=== PATIENT | male | born 1945 | race Caucasian/White ===

== ENCOUNTER 2016-10-02 10:31 | Day surgery (SDC) | payer MEDICARE, OTHER ==
--- NOTE | 2016-10-02 06:52 | PCM.HP ---
H&P History of Present Illness - General Date of Service: 10/02/16 Admit Problem/Dx: Left sided abdominal pain Source of Information: Patient History Limitations: Reports: No Limitations - History of Present Illness Initial Comments - Free Text/Narative: The patient is a 71-year-old male initially referred by Dr. Jani Armstrong for colonoscopy. The patient presents today diagnostic colonoscopy. He was last evaluated in the clinic on 08/15. He has been evaluated by cardiology, Dr. Macedo, "Patient can proceed w/ colonoscopy w/ low risk from cardiovascular standpoint." He was approved to proceed with endoscopy. He denies any changes to his mina history since his last visit. However, he does report he has left upper/flank pain and thought he was supposed to have an EGD. He reports he thought Dr. Armstrong recommended this. I reviewed Dr. Armstrong's note and only note colonoscopy was advised and a CT scan was ordered. He reports he continues to have the LUQ and LLQ pain after eating hard cheese. Worse with coughing and sneezing. He doesn' t feel a mass or bulge. ~No pain with lifting. ~NO obstipation. ~No pain reported today. ~~Denies history of ulcerative colitis or Crohn's disease. Denies any family history of inflammatory bowel disease or GI cancers. Son has colon polyps. ~Last colonoscopy was 1993, told it was normal. No history of fever, chills, or night sweats.Pain is resolved by having BM. Reports he feels this pain is improving. Now only occurs weekly. No longer has the right upper back pain, but feels he has a lump on his back, they thought it was a rib that was "out." The patient denies any constipation/ diarrhea/ hematochezia/ melena/blood on tissue paper/hemorrhoids. Has 1~soft, brown, formed, BMs daily. ~Bowel movements are described as regular and easy to pass. No unintentional weight loss. No change in stool caliber. No history of reflux, heartburn, nausea, vomiting, or dysphagia. - Related Data Allergies/Adverse Reactions: Allergies Allergy/AdvReac Type Severity Reaction Status Date / Time seafood Allergy Airway Uncoded 10/01/16 13:39 Tightness Home Medications: Home Meds Levothyroxine [Levothroid] 137 mcg PO DAILY 10/25/14 [History] Albuterol Sulfate [Ventolin Hfa] 1 - 2 puff INH Q4H PRN 10/01/16 [History] Aspirin 81 mg PO DAILY 10/01/16 [History] EPINEPHrine [Epipen] 1 dose IM ONETIME PRN 10/01/16 [History] Finasteride [Finasteride] 5 mg PO DAILY 10/01/16 [History] Flaxseed Oil 1,000 mg PO DAILY 10/01/16 [History] Metoprolol Succinate [Toprol XL] 25 mg PO DAILY 10/01/16 [History] Multivitamin [Multivitamins] 1 tab PO DAILY 10/01/16 [History] Nitroglycerin [Nitrostat] 0.4 mg SL Q5M PRN 10/01/16 [History] Ramipril [Ramipril] 10 mg PO DAILY 10/01/16 [History] Tamsulosin [Flomax] 0.4 mg PO DAILY 10/01/16 [History] Tiotropium Br/Olodaterol HCl [Stiolto Respimat Inhal [place]] 2 puff INH BID 10/01 [History] atorvaSTATin [Lipitor] 40 mg PO DAILY 10/01/16 [History] Past Medical History HEENT History: Reports: Impaired Vision, Other (See Below) Other HEENT History: impacted cerumen, glasses, dentures Cardiovascular History: Reports: CAD, High Cholesterol, Hypertension, [place], Stents , Other (See Below) Other Cardiovascular History: bradycardia, ASCVD, dysrhythmia, chronic ischemic heart disease, heart cath with stents Respiratory History: Reports: COPD, PE, Sleep Apnea, SOB Other Respiratory History: use of bipap, chronic cough, emphysema Gastrointestinal History: Reports: GERD Genitourinary History: Reports: Other (See Below) Other Genitourinary History: prostate hypertrophy OTOLARYNGOLOGY NURSE History: Reports: None Musculoskeletal History: Reports: Other (See Below) Other Musculoskeletal History: joint pain, broken bones, degenerative joint disease Neurological History: Reports: Concussion, Vertigo Psychiatric History: Reports: None Endocrine/Metabolic History: Reports: Hypothyroidism, Obesity/BMI 30+ Hematologic History: Reports: None Immunologic History: Reports: None Oncologic (Cancer) History: Reports: None Dermatologic History: Reports: Eczema, Other (See Below) Other Dermatologic History: contact dermatitis, rash, seborrheic keratosis - Past Surgical History Other Cardiovascular Surgeries/Procedures: stents GI Surgical History: Reports: Colonoscopy, Hernia, Inguinal Neurological Surgical History: Reports: Other (See Below) Other Neurological Surgeries/Procedures: spine surgery Musculoskeletal Surgical History: Reports: Other (See Below) Other Musculoskeletal Surgeries/Procedures:: 4-5 back surgeries, ankle fracture with repair Social & Family History - Tobacco Use Smoking Status *Q: Former Smoker Years of Tobacco use: 30 Used Tobacco, but Quit: Yes Month Tobacco Last Used: 12/2005 Second Hand Smoke Exposure: No - Caffeine Use Caffeine Use: Reports: None - Alcohol Use Days Per Week of Alcohol Use: 0 - Recreational Drug Use Recreational Drug Use: No Drug Use in Last 12 Months: No H&P Review of Systems - Review of Systems: Review Of Systems: See Below Free Text/Narrative: Denies any exertional chest pain. Has exertional shortness of breath, COPD. ~ Has never used albuterol. No history of any easy bleeding or bruising. Personal hx of PE several years ago. ~Was on Lovenox for a while after this. Also report he recalls taking Plavix at one point~. ~NO familial history of clotting or bleeding disorders. No history of anesthetic complications. No history of familial anesthetic complications. Denies presence of chest pain. He has never used Nitro. ~NO: ~Palpitations. Reports will forget to breath when working on things and will gasp for air. Reports he Will have abnormal heart rates and pauses on pulse oximeter. ~ NO: lower extremity edema, dyspnea at rest, orthopnea, claudication, wheezing. Has obstructive sleep apnea, uses BIPAP. ~Has a slight chronic cough. NO: upper respiratory symptoms in the last two weeks. No blood thinner use. No history of anemia. ~No history of seizure or stroke. ~ Prior cardiology and pulmonology evaluation. All other systems reviewed and were negative except as per history of present illness. General: Reports: No Symptoms. Denies: Fever, Chills, Night Sweats, Diaphoresis HEENT: Reports: No Symptoms Pulmonary: Reports: No Symptoms. Denies: Shortness of Breath, Wheezing, Cough Cardiovascular: Reports: No Symptoms. Denies: Chest Pain, Palpitations Gastrointestinal: Reports: Other (see hpi ) Genitourinary: Reports: No Symptoms Musculoskeletal: Reports: No Symptoms Skin: Reports: Other (see hpi ) Psychiatric: Reports: No Symptoms Neurological: Reports: No Symptoms Hematologic/Lymphatic: Reports: No Symptoms Immunologic: Reports: No Symptoms Exam - Exam Exam: See Below - Vital Signs Weight: 127.006 kg - Exam General: Alert, Oriented, Cooperative HEENT: Conjunctiva Clear. No: Scleral Icterus Lungs: Clear to Auscultation, Normal Respiratory Effort Cardiovascular: Regular Rate, Regular Rhythm (occasional extrasystole ), Normal S1, Normal S2. No: Systolic Murmur, Diastolic Murmur Abdomen: Normal Bowel Sounds, Soft, Tenderness (slightly tender LLQ ) Back Exam: Normal Inspection Extremities: Normal Inspection. No: Cyanosis, Cool, Edema, Increased Warmth Skin: Warm, Dry, Intact, Other (soft tissue mass to right upper back ? lipoma, non-tender, no color/temperature change to overlying skin ) Neuro Extensive - Mental Status: Alert, Oriented x3, Normal Mood/Affect, Normal Cognition, Memory Intact Psychiatric: Alert, Normal Affect, Normal Mood *Q Meaningful Use (ADM) - VTE *Q VTE Criteria *Q: - Stroke *Q Stroke Criteria *Q: - AMI *Q AMI Criteria *Q: - Problem List (1) LLQ pain SNOMED Code(s): 494799898 ICD Code: R10.32 - LEFT LOWER QUADRANT PAIN Status: Acute Current Visit: Yes (2) Left upper quadrant pain SNOMED Code(s): 188609687 ICD Code: R10.12 - LEFT UPPER QUADRANT PAIN Status: Acute Current Visit: Yes Problem List Initiated/Reviewed/Updated: Yes Orders Last 24hrs: Active Orders 24 hr Category Date Time Status Peripheral IV Care [RC] . DIRECTED Care 10/02/16 07:00 Active Verify Patient Consent Obtain [RC] ASDIRECTED Care 10/02/16 07:00 Active Lactated Ringers [Ringers, Lactated] 1,000 ml Med 10/02/16 07:00 Active IV ASDIRECTED Lidocaine 1%/Sod Bicarbonate [Buffered Lidocaine 1% in Med 10/02/16 07:00 Active NS 8.4%] 0.25 ml .XX ONETIME PRN Sodium Chloride 0.9% [Saline Flush] Med 10/02/16 07:00 Active 10 ml FLUSH ASDIRECTED PRN Medication Administration Instruction [OM.PC] Routine Oth 10/02/16 07:00 Ordered Peripheral IV Insertion Adult [OM.PC] Routine Oth 10/02/16 07:00 Ordered Medication Orders Lactated Ringer's (Ringers, Lactated) 1,000 mls @ 125 mls/hr IV ASDIRECTED VINNY Stop: 10/02/16 23:00 Lidocaine/Sodium Bicarbonate (Buffered Lidocaine 1% In Ns 8.4%) 0.25 ml .XX ONETIME PRN PRN Reason: Prior to IV Start Stop: 10/02/16 18:00 Sodium Chloride (Saline Flush) 10 ml FLUSH ASDIRECTED PRN PRN Reason: Keep Vein Open Stop: 10/02/16 18:00 Assessment/Plan Comment:: 71yr male with left sided abdominal pain, left upper abdominal pain need for diagnostic colonoscopy and diagnostic EGD Patient can perform 4 METS of physical activity without chest pain. He has exertional shortness of breath. ~ Soft tissue mass to right upper back PLAN: We discussed performing a diagnostic colonoscopy and diagnostic EGD. We discussed the risks and benefits of colonoscopy and EGD including pain, bleeding , need for additional procedures, damage to surrounding structures including colonic, small bowel/esophageal perforation risk of less than 1%, and risks of anesthesia. Informed consent was obtained. He does have a soft tissue mass to his right upper back, question if this is just normal fatty tissue versus lipoma. Will arrange an US of the area at follow up. I personally reviewed the patient's previous medical records and laboratory studies. Patient verbalized understanding and agreed with care plan. This patient was evaluated by Dr. Juany Samson, plan of care formulated by BEAU Brady-C scribing for Dr. Juany Samson General Surgery Department [facility]
[~2016-10-02 10:31] MED LIST: Lactated Ringers 1,000 ML IV SCH; Lidocaine 1%/Sod Bicarbonate in NS 8.4% 1 ML Syringe PRN; Sodium Chloride 0.9% 10 ML Syringe FLUSH PRN
--- NOTE | 2016-10-02 12:12 | PCM.PREANE ---
Preanesthetic Assessment - Procedure Proposed Procedure: Diagnostic EGD, Diagnostic Colonoscopy - Anesthesia/Transfusion/Family Hx Anesthesia History: Prior Anesthesia Without Reaction Family History of Anesthesia Reaction: No - Review of Systems General: No Symptoms Pulmonary: No Symptoms Cardiovascular: No Symptoms Gastrointestinal: Abdominal pain Neurological: No Symptoms Other: Reports: None, Thyroid Problems (currently euthyroid on replacement) - Physical Assessment NPO Status Date: 10/02/16 NPO Status Time: 08:55 O2 Sat by Pulse Oximetry: 91 Respiratory Rate: 16 Vital Signs: Last Vital Signs Temp 36.2 C 10/02/16 10:50 Pulse 86 10/02/16 10:50 Resp 16 10/02/16 10:50 BP 122/60 10/02/16 10:50 Pulse Ox 91 L 10/02/16 10:50 Height: 1.78 m Weight: 127.006 kg ASA Class: 3 Mental Status: Alert & Oriented x3 Airway Class: Mallampati = 2 Dentition: Reports: Partial (upper), [place](s), Missing Tooth/Teeth Thyro-Mental Finger Breadths: 3 Mouth Opening Finger Breadths: 2 ROM/Head Extension: Full Lungs: Clear to auscultation, Normal respiratory effort Cardiovascular: Regular Rate, Regular Rhythm, No Murmurs - Imaging/EKG Impressions: Sinus Rhythm with Incomplete RBBB. Premature complexes CXR negative for acute process. Does have borderline cardiomegally - Allergies Allergies/Adverse Reactions: Allergies Allergy/AdvReac Type Severity Reaction Status Date / Time seafood Allergy Airway Uncoded 10/01/16 13:39 Tightness - Acknowledgements Anesthesia Type Planned: MAC Pt an Appropriate Candidate for the Planned Anesthesia: Yes Alternatives and Risks of Anesthesia Discussed w Pt/Guardian: Yes Pt/Guardian Understands and Agrees with Anesthesia Plan: Yes PreAnesthesia Questionnaire HEENT History: Reports: Impaired Vision, Other (See Below) Other HEENT History: impacted cerumen, glasses, dentures Cardiovascular History: Reports: CAD, High Cholesterol, Hypertension, [place], Stents , Other (See Below) Other Cardiovascular History: bradycardia, ASCVD, dysrhythmia, chronic ischemic heart disease, heart cath with stents Respiratory History: Reports: COPD, PE, Sleep Apnea, SOB Other Respiratory History: use of bipap, chronic cough, emphysema Gastrointestinal History: Reports: GERD Genitourinary History: Reports: Other (See Below) Other Genitourinary History: prostate hypertrophy [employer]CH[employer] History: Reports: None Musculoskeletal History: Reports: Other (See Below) Other Musculoskeletal History: joint pain, broken bones, degenerative joint disease Neurological History: Reports: Concussion, Vertigo Psychiatric History: Reports: None Endocrine/Metabolic History: Reports: Hypothyroidism, Obesity/BMI 30+ Hematologic History: Reports: None Immunologic History: Reports: None Oncologic (Cancer) History: Reports: None Dermatologic History: Reports: Eczema, Other (See Below) Other Dermatologic History: contact dermatitis, rash, seborrheic keratosis - Past Surgical History Other Cardiovascular Surgeries/Procedures: stents GI Surgical History: Reports: Colonoscopy, Hernia, Inguinal Neurological Surgical History: Reports: Other (See Below) Other Neurological Surgeries/Procedures: spine surgery Musculoskeletal Surgical History: Reports: Other (See Below) Other Musculoskeletal Surgeries/Procedures:: 4-5 back surgeries, ankle fracture with repair - SUBSTANCE USE Smoking Status *Q: Former Smoker Second Hand Smoke Exposure: No Days Per Week of Alcohol Use: 0 Recreational Drug Use History: No - HOME MEDS Home Medications: Home Meds Levothyroxine [Levothroid] 137 mcg PO DAILY 01/15/14 [History] Albuterol Sulfate [Ventolin Hfa] 1 - 2 puff INH Q4H PRN 10/01/16 [History] Aspirin 81 mg PO DAILY 10/01/16 [History] EPINEPHrine [Epipen] 1 dose IM ONETIME PRN 10/01/16 [History] Finasteride [Finasteride] 5 mg PO DAILY 10/01/16 [History] Flaxseed Oil 1,000 mg PO DAILY 10/01/16 [History] Metoprolol Succinate [Toprol XL] 25 mg PO DAILY 10/01/16 [History] Multivitamin [Multivitamins] 1 tab PO DAILY 10/01/16 [History] Nitroglycerin [Nitrostat] 0.4 mg SL Q5M PRN 10/01/16 [History] Ramipril [Ramipril] 10 mg PO DAILY 10/01/16 [History] Tamsulosin [Flomax] 0.4 mg PO DAILY 10/01/16 [History] Tiotropium Br/Olodaterol HCl [Stiolto Respimat Inhal [place]] 2 puff INH BID 10/01 [History] atorvaSTATin [Lipitor] 40 mg PO DAILY 10/01/16 [History] - CURRENT (IN HOUSE) MEDS Current Meds: Current Medications Lactated Ringer's (Ringers, Lactated) 1,000 mls @ 125 mls/hr IV ASDIRECTED VINNY Stop: 10/02/16 23:00 Last Admin: 10/02/16 11:13 Dose: 125 mls/hr Lidocaine/Sodium Bicarbonate (Buffered Lidocaine 1% In Ns 8.4%) 0.25 ml .XX ONETIME PRN PRN Reason: Prior to IV Start Stop: 10/02/16 18:00 Last Admin: 10/02/16 11:13 Dose: 0.25 ml Sodium Chloride (Saline Flush) 10 ml FLUSH ASDIRECTED PRN PRN Reason: Keep Vein Open Stop: 10/02/16 18:00
[2016-10-02] MEDS ORDERED: Propofol 200 MG/20 ML SDV ONE ×2 (12:35→13:11)
[2016-10-02] MEDS ORDERED: Ketamine 500 mg/10 ML MDV ONE (12:36)
[2016-10-02] MEDS ORDERED: fentaNYL 100 MCG/2 ML SDV ONE (12:36)
[2016-10-02] MEDS ORDERED: Lidocaine 1% 6 ML ONE (12:38)
--- NOTE | 2016-10-02 13:26 | PCM.OPNOTE ---
- General Post-Op/Procedure Note Date of Surgery/Procedure: 10/02/16 Operative Procedure(s): 1. Diagnostic EGD with cold forceps biopsy. 2. Colonoscopy with hot snare and cold forceps polypectomy Pre Op Diagnosis: Left upper quadrant abdominal pain, family history of colon polyps in son, overdue for screening colonoscopy Post-Op Diagnosis: Gastritis, gastric ulcers, duodenitis, hiatal hernia, colon polyps, internal hemorrhoids Anesthesia Technique: MAC Primary Surgeon: Juany Samson Anesthesia Provider: Nomi Chase Pathology: 1. Small bowel biopsy 2. Antral biopsy 3. Distal esophageal biopsy 4. Cecal polyp 5. Hepatic flexure polyp 6. Transverse colon polyp 7. Proximal descending colon polyps 2 8. Distal descending colon polyps 3 9. Sigmoid colon polyp 10. Rectosigmoid polyp Fluid Replacement, Intraop: 1,000 (mL crystalloid ) EBL in mLs: 3 Complications: None Condition: Good Free Text/Narrative:: INDICATION FOR PROCEDURE: The patient is a 71-year-old man who is a patient of Dr. Jani Armstrong who presented for colonoscopy and diagnostic EGD. Risks of the procedures had been discussed with the patient. The patient found these risks acceptable and agreed to proceed. DESCRIPTION OF PROCEDURE: The patient was taken to the operating room and placed in the left lateral decubitus position. After induction of adequate sedation, a bite block was placed. A standard Olympus gastroscope was inserted into the oropharynx and guided down the esophagus without difficulty. The gastroesophageal junction was appreciated at 43 cm from the teeth. There was no evidence of stricture or esophageal ulcerations. The scope was advanced into the stomach, and there was gastritis with antral gastric ulcers. There was a small amount of old blood in the stomach, but no active bleeding. The scope was passed into the proximal jejunum and the duodenum which showed duodenitis of D1 and D2. There were no petechiae or ulcerations. The proximal jejunum was grossly normal in appearance. Multiple cold forceps biopsies were obtained of the proximal jejunum and duodenum. The scope was withdrawn into the antrum, and additional cold forceps biopsies were obtained. The remainder of the gastric body was examined, and there were no additional abnormalities. The scope was retroflexed, and there was no evidence of hiatal hernia. The scope was straightened and withdrawn to the GE junction. Additional cold forceps biopsies were obtained of the distal esophagus. The scope was withdrawn through the remainder of the esophagus and no further abnormalities were noted. The posterior oropharynx was grossly normal in appearance. The scope was fully withdrawn and attention was then turned to the colonoscopy. A digital rectal exam was performed which was unremarkable. An adult Olympus colonoscope was inserted into the rectum and guided under direct visualization to the appendiceal orifice and ileocecal valve. The scope was then slowly withdrawn through the colon. The quality of the prep was good. There was no evidence of angiodysplasias or diverticulum. Multiple polyps were noted throughout the colon. A small cecal polyp was noted and removed using cold forceps. It was sessile and diminutive. A medium-sized hepatic flexure polyp was removed using hot snare. A transverse colon polyp which was medium-sized was removed using hot snare. 2 proximal descending colon polyps were noted, one removed with hot snare, one removed with cold forceps. 3 distal descending colon polyps were noted. They were medium in size. They were removed using hot snare for 2 polyps and cold forceps for 1 polyp. A sigmoid colon polyp of medium-sized was removed using hot snare. A rectosigmoid colon polyp was removed using cold forceps. The scope was withdrawn into the rectum and retroflexed. There were Grade II internal hemorrhoids. The scope was straightened, the colon was desufflated,and the scope was withdrawn. The patient was awakened from sedation and transferred to the recovery room in stable condition having tolerated the procedure well. POSTOPERATIVE PLAN: I discussed with the patient's my intraoperative findings and recommendations. The patient will follow up in approximately 14 days with my nurse practitioner, BEAU Ramirez, to discuss pathology and how their symptoms are progressing. The patient is to start Carfate for one month and Protonix daily. I do think because of his significant heart history that he should continue his enteric-coated 81 mg aspirin daily. Also, prior to initiation of his procedure, it appeared his baseline heart rhythm had potentially changed to second-degree heart block as per review by our anesthesia team, and consideration for earlier follow-up with cardiology should be made and I recommended this to the patient and his . I have asked the patient to follow a GERD\gastritis diet. The patient is to call with any worsening of symptoms or questions prior to the appointment.
--- NOTE | 2016-10-02 13:41 | PCM48HPAN ---
Post Anesthesia Note - EVALUATION WITHIN 48HRS OF ANESTHETIC Vital Signs in Normal Range: Yes Patient Participated in Evaluation: Yes Respiratory Function Stable: Yes Airway Patent: Yes Cardiovascular Function Stable: Yes Hydration Status Stable: Yes Pain Control Satisfactory: Yes Nausea and Vomiting Control Satisfactory: Yes Mental Status Recovered: Yes
--- NOTE | 2016-10-02 13:52 | PCM.SN ---
- Free Text/Narrative Note: Anesthesiology I had the pleasure of caring for Mr. Beckford today during his EGD and Colonoscopy. He was recently appropriately cleared by cardiology for this procedure with sedation. Prior to the procedure, Mr. Beckford's rhythm strip showed variable Incomplete right bundle block alternating with Type 2 heart block. During the procedure I also noted that he was only generating a pulse with every other beat and was dropping every third beat. He maintained his blood pressure throughout the procedure. I am sending this note to [facility] with the patient for any further evaluation they may feel necessary. Dr. Nomi Chase
[2016-10-02 14:13] VITALS: BP 120/68
== END 2016-10-02 14:35 | disposition home or self-care (01) ==
LOC: JD.SDS 10:31
PROVIDERS: ATTEND Surgery
DX: D12.3 Benign neoplasm of transverse colon (principal); K29.90 Gastroduodenitis, unspecified, without bleeding; K44.9 Diaphragmatic hernia without obstruction or gangrene; K64.8 Other hemorrhoids; K25.9 Gastric ulcer, unspecified as acute or chronic, without hemorrhage or perforation; Z91.013 Allergy to seafood; Z79.82 Long term (current) use of aspirin; Z79.899 Other long term (current) drug therapy; I25.10 Atherosclerotic heart disease of native coronary artery without angina pectoris; I10 Essential (primary) hypertension; Z95.5 Presence of coronary angioplasty implant and graft; E78.00 Pure hypercholesterolemia, unspecified; I25.2 Old myocardial infarction; J44.9 Chronic obstructive pulmonary disease, unspecified; G47.30 Sleep apnea, unspecified; N40.0 Benign prostatic hyperplasia without lower urinary tract symptoms; M19.90 Unspecified osteoarthritis, unspecified site; E03.9 Hypothyroidism, unspecified; E66.9 Obesity, unspecified; Z68.30 Body mass index [BMI] 30.0-30.9, adult; Z87.891 Personal history of nicotine dependence
CPT/HCPCS: 43239; 45380; 45385; 88305; J3010; J7120; 00810; J2704

== ENCOUNTER 2017-08-21 13:45 | Emergency (ER) | payer MEDICARE, OTHER ==
[2017-08-21 13:56] VITALS: BP 125/84
[2017-08-21] MEDS ORDERED: Sodium Chloride 0.9% 10 ML Syringe FLUSH PRN (13:56)
--- NOTE | 2017-08-21 15:02 | CR ---
Chest: Portable view of the chest was obtained. Comparison: Prior chest x-ray of 03/18/13. Linear densities are seen within both lung bases believed to represent mostly fibrosis. Lungs otherwise are clear. Heart size is normal. Tortuous thoracic aorta is seen. Bony structures are grossly intact. Impression: 1. Findings as noted above. Nothing acute is suspected. Diagnostic code #2
--- NOTE | 2017-08-21 15:27 | EDM.PDOC ---
ED HPI GENERAL MEDICAL PROBLEM - General Chief Complaint: Cardiovascular Problem Stated Complaint: [facility] Time Seen by Provider: 08/21/17 13:51 Source of Information: Reports: Patient, EMS History Limitations: Reports: No Limitations - History of Present Illness INITIAL COMMENTS - FREE TEXT/NARRATIVE: The patient presents by [facility] for chest pain. He was outside doing some things and he developed left sided chest pain. The pain was sharp. He was short of breath. He does have COPD and he thinks it was related to that. He took 2 nitro and it was better. He has a history of LA. He took an aspirin this morning. He has no pain now. He just saw his structural fitter 2 weeks ago and everything was okay. He has no fever, chills, cough, congestion, edema or pain in his legs. Onset: Sudden Duration: Hour(s): Location: Reports: Chest Quality: Reports: Sharp Severity: Moderate Improves with: Reports: None Worsens with: Reports: None Associated Symptoms: Reports: Chest Pain, Shortness of Breath. Denies: Cough, Fever/Chills, Nausea/Vomiting Treatments [employer]: Reports: EKG, IV/IO, Oxygen - Related Data Allergies Allergy/AdvReac Type Severity Reaction Status Date / Time seafood Allergy Airway Uncoded 08/21/17 13:59 Tightness Home Meds: Home Meds Levothyroxine [Levothroid] 137 mcg PO DAILY 01/15/14 [History] Albuterol Sulfate [Ventolin Hfa] 1 - 2 puff INH Q4H PRN 10/01/16 [History] Aspirin 81 mg PO DAILY 10/01/16 [History] EPINEPHrine [Epipen] 1 dose IM ONETIME PRN 10/01/16 [History] Finasteride 5 mg PO DAILY 10/01/16 [History] Flaxseed Oil 1,000 mg PO DAILY 10/01/16 [History] Metoprolol Succinate [Toprol XL] 50 mg PO DAILY 10/01/16 [History] Multivitamin [Multivitamins] 1 tab PO DAILY 10/01/16 [History] Nitroglycerin [Nitrostat] 0.4 mg SL Q5M PRN 10/01/16 [History] Ramipril 10 mg PO DAILY 10/01/16 [History] Tamsulosin [Flomax] 0.4 mg PO DAILY 10/01/16 [History] Tiotropium Br/Olodaterol HCl [Stiolto Respimat Inhal Carrier] 2.5 mcg INH DAILY [History] atorvaSTATin [Lipitor] 40 mg PO DAILY 10/01/16 [History] Pantoprazole Sodium [Protonix] 40 mg PO DAILY #30 tablet. 10/02/16 [Rx] Apixaban [Eliquis] 5 mg PO BID 08/21/17 [History] Ciprofloxacin HCl [Cipro] 500 mg PO BID 08/21/17 [History] Oxybutynin [Oxybutynin ER] 10 mg PO DAILY 08/21/17 [History] Past Medical History HEENT History: Reports: Impaired Vision, Other (See Below) Other HEENT History: impacted cerumen, glasses, dentures Cardiovascular History: Reports: CAD, High Cholesterol, Hypertension, [place], Stents , Other (See Below) Other Cardiovascular History: bradycardia, ASCVD, dysrhythmia, chronic ischemic heart disease, heart cath with stents Respiratory History: Reports: COPD, PE, Sleep Apnea, SOB Other Respiratory History: use of bipap, chronic cough, emphysema Gastrointestinal History: Reports: GERD Genitourinary History: Reports: Other (See Below) Other Genitourinary History: prostate hypertrophy CUSTODY ASSISTANT History: Reports: None Musculoskeletal History: Reports: Other (See Below) Other Musculoskeletal History: joint pain, broken bones, degenerative joint disease Neurological History: Reports: Concussion, Vertigo Psychiatric History: Reports: None Endocrine/Metabolic History: Reports: Hypothyroidism, Obesity/BMI 30+ Hematologic History: Reports: None Immunologic History: Reports: None Oncologic (Cancer) History: Reports: None Dermatologic History: Reports: Eczema, Other (See Below) Other Dermatologic History: contact dermatitis, rash, seborrheic keratosis - Past Surgical History Other Cardiovascular Surgeries/Procedures: stents GI Surgical History: Reports: Colonoscopy, Hernia, Inguinal Neurological Surgical History: Reports: Other (See Below) Other Neurological Surgeries/Procedures: spine surgery Musculoskeletal Surgical History: Reports: Other (See Below) Other Musculoskeletal Surgeries/Procedures:: 4-5 back surgeries, ankle fracture with repair Social & Family History - Family History Family Medical History: Noncontributory - Tobacco Use Smoking Status *Q: Former Smoker Used Tobacco, but Quit: No - Caffeine Use Caffeine Use: Reports: Coffee - Recreational Drug Use Recreational Drug Use: No ED ROS GENERAL - Review of Systems Review Of Systems: See Below Constitutional: Reports: No Symptoms HEENT: Reports: No Symptoms Respiratory: Reports: Shortness of Breath Cardiovascular: Reports: Chest Pain Endocrine: Reports: No Symptoms GI/Abdominal: Reports: No Symptoms : Reports: No Symptoms Musculoskeletal: Reports: No Symptoms ED EXAM, GENERAL - Physical Exam Exam: See Below Exam Limited By: No Limitations General Appearance: Alert, No Apparent Distress Ears: Normal External Exam Nose: Normal Inspection Head: Atraumatic, Normocephalic Neck: Normal Inspection Respiratory/Chest: No Respiratory Distress, Lungs Clear, Normal Breath Sounds Cardiovascular: Regular Rate, Rhythm, No Edema, No Murmur GI/Abdominal: Soft, Non-Tender, No Organomegaly, No Mass Back Exam: Normal Inspection Extremities: Normal Inspection Neurological: Alert, Oriented, No Motor/Sensory Deficits EKG INTERPRETATION EKG Date: 08/21/17 Time: 13:50 Rhythm: NSR Rate (Beats/Min): 85 [place]: Normal P-Wave: Present QRS: Wide (Nonspecific IVCD with LAD) ST-T: Normal QT: Normal OH/PQ Interval: 1st degree HB Course - Vital Signs Last Recorded V/S: Last Vital Signs Temp 97.5 F 08/21/17 13:45 Pulse 84 08/21/17 13:45 Resp 18 08/21/17 13:45 BP 125/84 08/21/17 13:45 Pulse Ox 96 08/21/17 13:59 - Orders/Labs/Meds Orders: Active Orders 24 hr Category Date Time Status Cardiac Monitoring [RC] . DIRECTED Care 08/21/17 13:56 Active EKG Documentation Completion [RC] STAT Care 08/21/17 13:56 Active Peripheral IV Care [RC] . DIRECTED Care 08/21/17 13:56 Active Sodium Chloride 0.9% [Saline Flush] Med 08/21/17 13:56 Active 10 ml FLUSH ASDIRECTED PRN Peripheral IV Insertion Adult [OM.PC] Stat Oth 08/21/17 13:56 Ordered Medication Orders Sodium Chloride (Saline Flush) 10 ml FLUSH ASDIRECTED PRN PRN Reason: Keep Vein Open Last Admin: 08/21/17 13:59 Dose: 10 ml Labs: Laboratory Tests 08/21/17 08/21/17 Range/Units 14:10 14:10 WBC 6.26 (4.23-9.07) K/mm3 RBC 4.35 L (4.63-6.08) M/mm3 Hgb 14.5 (13.7-17.5) gm/L Hct 42.9 (40.1-51.0) % MCV 98.6 H (79.0-92.2) fl MCH 33.3 H (25.7-32.2) pg MCHC 33.8 (32.2-35.5) g/dl RDW Std Deviation 45.8 H (35.1-43.9) fL Plt Count 168 (163-337) K/mm3 MPV 8.6 L (9.4-12.3) fl Neut % (Auto) 54.6 (34.0-67.9) % Lymph % (Auto) 28.3 (21.8-53.1) % [place] % (Auto) 11.2 (5.3-12.2) % Eos % (Auto) 5.4 (0.8-7.0) Baso % (Auto) 0.3 (0.1-1.2) % Neut # (Auto) 3.42 (1.78-5.38) K/mm3 Lymph # (Auto) 1.77 (1.32-3.57) K/mm3 [place] # (Auto) 0.70 (0.30-0.82) K/mm3 Eos # (Auto) 0.34 (0.04-0.54) K/mm3 Baso # (Auto) 0.02 (0.01-0.08) K/mm3 Sodium 142 (136-145) mEq/L Potassium 3.6 (3.5-5.1) mEq/L Chloride 108 H (98-107) mEq/L Carbon Dioxide 26 (21-32) mEq/L Anion Gap 11.6 (5-15) BUN 13 (7-18) mg/dL Creatinine 1.1 (0.7-1.3) mg/dL Est Cr Clr Drug Dosing 60.83 mL/min Estimated GFR (MDRD) > 60 (>60) mL/min BUN/Creatinine Ratio 11.8 L (14-18) Glucose 102 (83-115) mg/dL Calcium 8.7 (8.5-10.1) mg/dL Total Bilirubin 0.9 (0.2-1.0) mg/dL AST 18 (15-37) U/L ALT 21 (16-63) U/L Alkaline Phosphatase 49 (46-116) U/L Troponin I < 0.017 (0.00-0.056) ng/mL Total Protein 6.6 (6.4-8.2) g/dl Albumin 3.4 (3.4-5.0) g/dl Globulin 3.2 gm/dL Albumin/Globulin Ratio 1.1 (1-2) Meds: Medications Generic Name Dose Route Start Last Admin Trade Name Freq PRN Reason Stop Dose Admin Sodium Chloride 10 ml 08/21/17 13:56 08/21/17 13:59 Saline Flush FLUSH 10 ml ASDIRECTED PRN Administration Keep Vein Open - Re-Assessments/Exams Free Text/Narrative Re-Assessment/Exam: 08/21/17 15:28 I ordered an IV saline lock, EKG, CXR, and labs. His EKG shows a NSR with no acute changes. His CXR looks good. HIs CBC and CMP look good. His troponin is negative. He feels better. I will discharge him home. 08/21/17 15:30 Please send a copy of this dictation to Dr Armstrong. Departure - Departure Time of Disposition: 15:30 Disposition: Home, Self-Care 01 Condition: Good Clinical Impression: Chest pain Qualifiers: Chest pain type: unspecified Qualified Code(s): R07.9 - Chest pain, unspecified Referrals: Jani Armstrong MD [Primary Care Provider] - 1 Week Additional Instructions: Take your medication as prescribed. Follow up with Dr Armstrong this next week. Please return if you are worse. - My Orders Last 24 Hours: My Active Orders 08/21/17 13:56 Cardiac Monitoring [RC] . DIRECTED EKG Documentation Completion [RC] STAT Peripheral IV Care [RC] . DIRECTED Sodium Chloride 0.9% [Saline Flush] 10 ml FLUSH ASDIRECTED PRN Peripheral IV Insertion Adult [OM.PC] Stat - Assessment/Plan Last 24 Hours: My Active Orders 08/21/17 13:56 Cardiac Monitoring [RC] . DIRECTED EKG Documentation Completion [RC] STAT Peripheral IV Care [RC] . DIRECTED Sodium Chloride 0.9% [Saline Flush] 10 ml FLUSH ASDIRECTED PRN Peripheral IV Insertion Adult [OM.PC] Stat
== END 2017-08-21 15:59 | disposition home or self-care (01) ==
LOC: JD.ED 13:45
DX: R07.9 Chest pain, unspecified (principal); I10 Essential (primary) hypertension; I25.2 Old myocardial infarction; J44.9 Chronic obstructive pulmonary disease, unspecified; E66.9 Obesity, unspecified; Z91.013 Allergy to seafood; Z79.82 Long term (current) use of aspirin; Z79.899 Other long term (current) drug therapy; Z87.891 Personal history of nicotine dependence
CPT/HCPCS: 36415; 71045; 80053; 84484; 85025; 93005; 99285; J7050; 93010; 99283

== ENCOUNTER 2018-09-02 14:14 | Emergency (ER) | payer MEDICARE, OTHER ==
[2018-09-02 14:24] VITALS: BP 108/65
[2018-09-02] MEDS ORDERED: Alum Hydrox/Mag Hydrox/Simeth 30 ML, Lidocaine 2% 15 ML PO ONE ×2 (14:41)
--- NOTE | 2018-09-02 14:54 | EDM.PDOC ---
ED HPI GENERAL MEDICAL PROBLEM - General Chief Complaint: Gastrointestinal Problem Stated Complaint: HEART ISSUES Time Seen by Provider: 09/02/18 14:36 Source of Information: Reports: Patient, Old Records, Provider (walk-in clinic provider at [facility]) History Limitations: Reports: No Limitations - History of Present Illness INITIAL COMMENTS - FREE TEXT/NARRATIVE: 73 year old male presents for evaluation and treatment of chest pain. Patient sent over from the walk-in clinic. Provider called report prior to patient's arrival . Provider at the walk-in clinic believe this is likely reflux related but is unable to get a troponin timely manner and therefore felt that he better served at our facility. Patient has been complaining of intermittent chest pain to the left side of his chest for about one week. He states currently he has chest pain of left-sided chest is a 5 out 10 and states this is a dull ache. He denies any pain into his neck, arm or back. He denies any shortness breath, lightheadedness, syncope, nausea or vomiting. He is appreciated that milk and Tums seem to help with his symptoms. He is on Protonix and started Zantac only yesterday. Patient's past medical history of coronary artery disease. Had an TX approximately 10 years ago. Patient has metastatic lung cancer. Is currently treated by Dr. Irvin in [place] He is currently on chemotherapy for this, has not had any radiation. Review of the patient's records show he had an an EGD and colonoscopy with Dr. Josephine Samson October 02, 2016. Postop diagnosis include duodenitis, gastric ulcers , hiatal hernia, polyps and internal hemorrhoids. Left Chest Pain Score (Numeric/FACES): 6 - Related Data Allergies Allergy/AdvReac Type Severity Reaction Status Date / Time Fish Containing Products Allergy Airway Verified 09/02/18 14:24 Tightness Home Meds: Home Meds Levothyroxine [Levothroid] 137 mcg PO DAILY 01/15/14 [History] Albuterol Sulfate [Ventolin Hfa] 1 - 2 puff INH Q4H PRN 10/01/16 [History] EPINEPHrine [Epipen] 1 dose IM ASDIRECTED PRN 10/01/16 [History] Finasteride 5 mg PO DAILY 10/01/16 [History] Metoprolol Succinate [Toprol XL] 50 mg PO DAILY 10/01/16 [History] Tamsulosin [Flomax] 0.4 mg PO DAILY 10/01/16 [History] atorvaSTATin [Lipitor] 40 mg PO DAILY 10/01/16 [History] Apixaban [Eliquis] 5 mg PO BID 08/21/17 [History] Oxybutynin [Oxybutynin ER] 10 mg PO DAILY 08/21/17 [History] Pantoprazole Sodium [Protonix] 40 mg PO BID 04/08/18 [History] Sucralfate [Carafate] 1 gm PO BID #30 tablet 09/02/18 [Rx] Past Medical History HEENT History: Reports: Impaired Vision, Other (See Below) Other HEENT History: impacted cerumen, glasses, dentures Cardiovascular History: Reports: CAD, High Cholesterol, Hypertension, [place], Stents , Other (See Below) Other Cardiovascular History: bradycardia, ASCVD, dysrhythmia, chronic ischemic heart disease, heart cath with stents Respiratory History: Reports: COPD, PE, Sleep Apnea, SOB Other Respiratory History: use of bipap, chronic cough, emphysema Gastrointestinal History: Reports: GERD Genitourinary History: Reports: Other (See Below) Other Genitourinary History: prostate hypertrophy ENGINEERING DOCUMENT CONTROL CLERK History: Reports: None Musculoskeletal History: Reports: Other (See Below) Other Musculoskeletal History: joint pain, broken bones, degenerative joint disease Neurological History: Reports: Concussion, Vertigo Psychiatric History: Reports: None Endocrine/Metabolic History: Reports: Hypothyroidism, Obesity/BMI 30+ Hematologic History: Reports: None Immunologic History: Reports: None Oncologic (Cancer) History: Reports: None Dermatologic History: Reports: Eczema, Other (See Below) Other Dermatologic History: contact dermatitis, rash, seborrheic keratosis - Past Surgical History Other Cardiovascular Surgeries/Procedures: stents GI Surgical History: Reports: Colonoscopy, Hernia, Inguinal Neurological Surgical History: Reports: Other (See Below) Other Neurological Surgeries/Procedures: spine surgery Musculoskeletal Surgical History: Reports: Other (See Below) Other Musculoskeletal Surgeries/Procedures:: 4-5 back surgeries, ankle fracture with repair Social & Family History - Family History Family Medical History: Noncontributory - Tobacco Use Smoking Status *Q: Former Smoker Used Tobacco, but Quit: Yes Month/Year Tobacco Last Used: 2008 - Caffeine Use Caffeine Use: Reports: Coffee, Soda - Recreational Drug Use Recreational Drug Use: No ED ROS GENERAL - Review of Systems Review Of Systems: See Below Respiratory: Denies: Shortness of Breath Cardiovascular: Reports: Chest Pain. Denies: Lightheadedness GI/Abdominal: Denies: Abdominal Pain, Nausea, Vomiting Musculoskeletal: Denies: Neck Pain, Arm Pain, Back Pain Neurological: Denies: Syncope ED EXAM, GENERAL - Physical Exam Exam: See Below Exam Limited By: No Limitations General Appearance: Alert, WD/WN, No Apparent Distress, Obese Respiratory/Chest: No Respiratory Distress, Lungs Clear, Normal Breath Sounds, Other ([facility]) Cardiovascular: Normal Peripheral Pulses, Regular Rate, Rhythm, No Murmur GI/Abdominal: Normal Bowel Sounds, Soft, Non-Tender Neurological: Alert, Oriented, Normal Cognition Psychiatric: Normal Affect, Normal Mood Skin Exam: Warm, Dry, Normal Color EKG INTERPRETATION EKG Date: 09/02/18 Time: 15:06 Rhythm: A-Flutter Rate (Beats/Min): 87 [place]: Normal P-Wave: Present QRS: Normal ST-T: Normal QT: Normal Comparison: No Change EKG Interpretation Comments: a.flutter with a rate of 87 bpm. No significant changes from previous EKG. Reviewed by myself and Dr. Javed. Course - Vital Signs Last Recorded V/S: Last Vital Signs Temp 97.8 F 09/02/18 14:20 Pulse 88 09/02/18 14:20 Resp 19 09/02/18 14:20 BP 108/65 09/02/18 14:20 Pulse Ox 89 L 09/02/18 14:20 - Orders/Labs/Meds Orders: Active Orders 24 hr Category Date Time Status Cardiac Monitoring [RC] . DIRECTED Care 09/02/18 14:41 Active EKG Documentation Completion [RC] ASDIRECTED Care 09/02/18 14:41 Active Chest 1V Frontal [CR] Stat Exams 09/02/18 14:41 Taken EKG 12 Lead [EK] Stat Ther 09/02/18 14:41 Ordered Labs: Laboratory Tests 09/02/18 09/02/18 09/02/18 Range/Units 15:04 15:04 15:04 WBC 8.91 (4.23-9.07) K/mm3 RBC 2.88 L (4.63-6.08) M/mm3 Hgb 9.9 L D (13.7-17.5) gm/L Hct 30.7 L (40.1-51.0) % MCV 106.6 H D (79.0-92.2) fl MCH 34.4 H (25.7-32.2) pg MCHC 32.2 (32.2-35.5) g/dl RDW Std Deviation 52.2 H (35.1-43.9) fL Plt Count 205 (163-337) K/mm3 MPV 8.2 L (9.4-12.3) fl Neut % (Auto) 68.3 H (34.0-67.9) % Lymph % (Auto) 18.9 L (21.8-53.1) % [place] % (Auto) 10.3 (5.3-12.2) % Eos % (Auto) 2.0 (0.8-7.0) Baso % (Auto) 0.2 (0.1-1.2) % Neut # (Auto) 6.08 H (1.78-5.38) K/mm3 Lymph # (Auto) 1.68 (1.32-3.57) K/mm3 [place] # (Auto) 0.92 H (0.30-0.82) K/mm3 Eos # (Auto) 0.18 (0.04-0.54) K/mm3 Baso # (Auto) 0.02 (0.01-0.08) K/mm3 Manual Slide Review Abnormal smear PT 13.4 H (9.5-12.1) SECONDS INR 1.23 APTT 31 (24-31) SECONDS Sodium 139 (136-145) mEq/L Potassium 3.7 (3.5-5.1) mEq/L Chloride 100 (98-107) mEq/L Carbon Dioxide 28 (21-32) mEq/L Anion Gap 14.7 (5-15) BUN 17 (7-18) mg/dL Creatinine 1.2 (0.7-1.3) mg/dL Est Cr Clr Drug Dosing 54.92 mL/min Estimated GFR (MDRD) 59 (>60) mL/min BUN/Creatinine Ratio 14.2 (14-18) Glucose 106 (83-115) mg/dL Calcium 9.4 (8.5-10.1) mg/dL Total Bilirubin 0.8 (0.2-1.0) mg/dL AST 11 L (15-37) U/L ALT 15 L (16-63) U/L Alkaline Phosphatase 68 (46-116) U/L Troponin I < 0.017 (0.00-0.056) ng/mL Total Protein 6.8 (6.4-8.2) g/dl Albumin 2.9 L (3.4-5.0) g/dl Globulin 3.9 gm/dL Albumin/Globulin Ratio 0.7 L (1-2) Meds: Medications Discontinued Medications Generic Name Dose Route Start Last Admin Trade Name Freq PRN Reason Stop Dose Admin Al Hydroxide/Mg Hydroxide 30 0 ml 09/02/18 14:41 09/02/18 14:48 ml/ Lidocaine HCl 15 ml PO 09/02/18 14:42 45 ml ONETIME ONE Administration - Radiology Interpretation Free Text/Narrative:: 1 view chest xray shows port in the left upper chest. Mass in the left middle lobe. No acute changes. Formal radiology read pending. - Re-Assessments/Exams Free Text/Narrative Re-Assessment/Exam: 09/02/18 16:19 reviewed the labs ekg and chest xray with the patient. Feels improvement with the GI cocktail. Will start on carafate. Recommend follow-up with PCP in 2 weeks as planned. Please return to the ER should your symptoms change or worsen. Departure - Departure Time of Disposition: 16:19 Disposition: Home, Self-Care 01 Condition: Good Clinical Impression: Gastritis Qualifiers: Gastritis type: unspecified gastritis Chronicity: unspecified Gastritis bleeding: without bleeding Qualified Code(s): K29.70 - Gastritis, unspecified, without bleeding Prescriptions: Sucralfate [Carafate] 1 gm PO BID #30 tablet Instructions: Gastritis, Adult, [id number] Referrals: Jani Armstrong MD [Primary Care Provider] - Forms: ED Department Discharge Additional Instructions: Take the carafate as prescribed 1 tab PO 1 hour prior to lunch and dinner. Attempt to avoid taking the carafate within 4 hours of your thyroid medication. Attempt to avoid taking the carafate within 30 minutes of your protonix. May continue to use OTC tums, rolaids, etc as needed. Recommend avoiding spicy foods. Follow-up with PCP in 2 weeks as planned. Please return to the ER should your symptoms change or worsen. - My Orders Last 24 Hours: My Active Orders 09/02/18 14:41 Cardiac Monitoring [RC] . DIRECTED EKG Documentation Completion [RC] ASDIRECTED Chest 1V Frontal [CR] Stat EKG 12 Lead [EK] Stat - Assessment/Plan Last 24 Hours: My Active Orders 09/02/18 14:41 Cardiac Monitoring [RC] . DIRECTED EKG Documentation Completion [RC] ASDIRECTED Chest 1V Frontal [CR] Stat EKG 12 Lead [EK] Stat
--- NOTE | 2018-09-03 08:30 | CR ---
Chest: Frontal view of the chest was obtained utilizing portable technique. Comparison: Previous chest x-ray of 01/08/18. Focal mass-like density noted within the left upper chest. This appears similar to previous exam. Left-sided infusion catheter is seen. Tortuous thoracic aorta is seen. Heart size is normal. Right lung is clear. Impression: 1. Focal mass-like density within the left upper chest which is similar to prior chest x-ray. Please correlate as to etiology, neoplasm is possible. 2. Infusion port which is an interval change from prior exam. 3. Nothing acute is otherwise seen. Diagnostic code #9
== END 2018-09-02 16:35 | disposition home or self-care (01) ==
LOC: JD.ED 14:14
DX: K29.70 Gastritis, unspecified, without bleeding (principal); I10 Essential (primary) hypertension; E78.00 Pure hypercholesterolemia, unspecified; I25.10 Atherosclerotic heart disease of native coronary artery without angina pectoris; E03.9 Hypothyroidism, unspecified; J44.9 Chronic obstructive pulmonary disease, unspecified; Z79.899 Other long term (current) drug therapy; Z91.013 Allergy to seafood; Z87.891 Personal history of nicotine dependence
CPT/HCPCS: 36415; 71045; 80053; 84484; 85025; 85610; 85730; 93005; 99284; A9270

== ENCOUNTER 2019-04-19 03:29 | Inpatient (IN) | payer MEDICARE, OTHER ==
[2019-04-19] MEDS ORDERED: Sodium Chloride 0.9% 10 ML Syringe FLUSH PRN (03:41)
--- NOTE | 2019-04-19 03:58 | EDM.PDOC ---
<Mark Ojeda - Last Filed: 04/19/19 13:29> ED HPI GENERAL MEDICAL PROBLEM - General Chief Complaint: Neurological Problem Stated Complaint: [facility] Time Seen by Provider: 04/19/19 03:39 - Related Data Allergies Allergy/AdvReac Type Severity Reaction Status Date / Time Fish Containing Products Allergy Airway Verified 04/19/19 03:35 Tightness Home Meds: Home Meds Levothyroxine [Levothroid] 137 mcg PO DAILY 01/15/14 [History] Finasteride 5 mg PO DAILY 10/01/16 [History] Metoprolol Succinate [Toprol XL] 50 mg PO DAILY 10/01/16 [History] Tamsulosin [Flomax] 0.4 mg PO DAILY 10/01/16 [History] atorvaSTATin [Lipitor] 40 mg PO DAILY 10/01/16 [History] Apixaban [Eliquis] 5 mg PO BID 08/21/17 [History] Oxybutynin [Oxybutynin ER] 10 mg PO DAILY 08/21/17 [History] Benzonatate [Tessalon Perle] 100 mg PO BID 02/12/19 [History] Diltiazem HCl [Cartia Xt] 120 mg PO DAILY 02/12/19 [History] Furosemide [Lasix] 20 mg PO MOWEFR 02/12/19 [History] Multivitamin [Multi-Vitamin Daily] 1 tab PO DAILY 02/12/19 [History] Tiotropium Br/Olodaterol HCl [Stiolto Respimat Inhal Jones] 2 puff INH DAILY [History] Docusate Sodium/Sennosides [Senna Plus] 1 tab PO QID 04/19/19 [History] Megestrol [Megace 40 MG/ML Susp] 800 mg PO DAILY 04/20/19 [History] Morphine 15 mg PO TID 04/20/19 [History] Course - Vital Signs Last Recorded V/S: Last Vital Signs Temp 98.1 F 04/21/19 03:32 Pulse 76 04/21/19 03:32 Resp 18 04/21/19 03:32 BP 95/66 04/21/19 03:32 Pulse Ox 95 04/21/19 06:03 - Orders/Labs/Meds Orders: Medication Orders Apixaban (Eliquis) 5 mg PO BID [facility] Last Admin: 04/20/19 21:16 Dose: 5 mg Benzonatate (Tessalon Perles) 100 mg PO BID [facility] Last Admin: 04/20/19 21:17 Dose: 100 mg Diltiazem HCl (Cardizem Cd) 120 mg PO DAILY [facility] Finasteride (Proscar) 5 mg PO DAILY [facility] Lactated Ringer's (Ringers, Lactated) 1,000 mls @ 100 mls/hr IV ASDIRECTED [facility] Last Admin: 04/21/19 02:12 Dose: 100 mls/hr Infusion: 04/21/19 02:12 Dose: 100 mls/hr Admin: 04/20/19 17:35 Dose: 100 mls/hr Infusion: 04/20/19 17:35 Dose: 100 mls/hr Admin: 04/20/19 07:38 Dose: 100 mls/hr Infusion: 04/20/19 01:54 Dose: 100 mls/hr Admin: 04/19/19 15:54 Dose: 100 mls/hr Ketorolac Tromethamine (Toradol) 30 mg IV Q6H PRN PRN Reason: Pain (moderate 4-6) Last Admin: 04/20/19 04:34 Dose: 30 mg Megestrol Acetate (Megace 40 Mg/Ml Susp) 800 mg PO DAILY [facility] Metoprolol Succinate (Toprol Xl) 50 mg PO DAILY [facility] Morphine Sulfate (Morphine) 15 mg PO TID [facility] Last Admin: 04/20/19 21:13 Dose: 15 mg Ondansetron HCl (Zofran) 4 mg IV Q6H PRN PRN Reason: Nausea/Vomiting Oxybutynin Chloride (Oxybutynin Er) 10 mg PO DAILY [facility] Tiotropium Br/Olodaterol Hcl [ Stiolto Respimat Inhal Jones] 0 each INH DAILY [facility] Senna/Docusate Sodium (Senna Plus) 1 tab PO QID [facility] Last Admin: 04/20/19 21:15 Dose: 1 tab Admin: 04/20/19 16:26 Dose: 1 tab Sodium Chloride (Saline Flush) 10 ml FLUSH ASDIRECTED PRN PRN Reason: Keep Vein Open Last Admin: 04/19/19 04:39 Dose: 10 ml Tamsulosin HCl (Flomax) 0.4 mg PO DAILY [facility] Labs: Laboratory Tests 04/19/19 04/19/19 04/19/19 Range/Units 04:04 04:04 05:45 WBC 19.74 H (4.23-9.07) K/mm3 RBC 2.48 L (4.63-6.08) M/mm3 Hgb 7.8 L D (13.7-17.5) gm/dl Hct 25.9 L (40.1-51.0) % MCV 104.4 H (79.0-92.2) fl MCH 31.5 (25.7-32.2) pg MCHC 30.1 L (32.2-35.5) g/dl RDW Std Deviation 79.7 H (35.1-43.9) fL Plt Count 330 D (163-337) K/mm3 MPV 8.3 L (9.4-12.3) fl Neut % (Auto) 85.6 H (34.0-67.9) % Lymph % (Auto) 5.8 L (21.8-53.1) % Morrow % (Auto) 6.6 (5.3-12.2) % Eos % (Auto) 1.0 (0.8-7.0) Baso % (Auto) 0.2 (0.1-1.2) % Neut # (Auto) 16.90 H (1.78-5.38) K/mm3 Lymph # (Auto) 1.15 L (1.32-3.57) K/mm3 Morrow # (Auto) 1.31 H (0.30-0.82) K/mm3 Eos # (Auto) 0.20 (0.04-0.54) K/mm3 Baso # (Auto) 0.03 (0.01-0.08) K/mm3 Manual Slide Review Abnormal smear Sodium 135 L (136-145) mEq/L Potassium 3.4 L (3.5-5.1) mEq/L Chloride 98 (98-107) mEq/L Carbon Dioxide 27 (21-32) mEq/L Anion Gap 13.4 (5-15) BUN 17 (7-18) mg/dL Creatinine 1.0 (0.7-1.3) mg/dL Est Cr Clr Drug Dosing TNP Estimated GFR (MDRD) > 60 (>60) mL/min BUN/Creatinine Ratio 17.0 (14-18) Glucose 132 H (83-115) mg/dL Lactic Acid 0.8 (0.4-2.0) mmol/L Calcium 9.6 (8.5-10.1) mg/dL Total Bilirubin 1.1 H (0.2-1.0) mg/dL AST 19 (15-37) U/L ALT 28 (16-63) U/L Alkaline Phosphatase 87 (46-116) U/L Total Protein 6.8 (6.4-8.2) g/dl Albumin 1.9 L (3.4-5.0) g/dl Globulin 4.9 gm/dL Albumin/Globulin Ratio 0.4 L (1-2) Meds: Medications Generic Name Dose Route Start Last Admin Trade Name Freq PRN Reason Stop Dose Admin Apixaban 5 mg 04/20/19 21:00 04/20/19 21:16 Eliquis PO 5 mg BID [facility] Administration Benzonatate 100 mg 04/20/19 21:00 04/20/19 21:17 Tessalon Perles PO 100 mg BID [facility] Administration Diltiazem HCl 120 mg 04/21/19 09:00 Cardizem Cd PO DAILY [facility] Finasteride 5 mg 04/21/19 09:00 Proscar PO DAILY [facility] Lactated Ringer's 1,000 mls @ 100 mls/hr 04/19/19 14:30 04/21/19 02:12 Ringers, Lactated IV 100 mls/hr ASDIRECTED [facility] Administration Ketorolac Tromethamine 30 mg 04/19/19 14:16 04/20/19 04:34 Toradol IV 30 mg Q6H PRN Administration Pain (moderate 4-6) Megestrol Acetate 800 mg 04/21/19 09:00 Megace 40 Mg/Ml Susp PO DAILY [facility] Metoprolol Succinate 50 mg 04/21/19 09:00 Toprol Xl PO DAILY [facility] Morphine Sulfate 15 mg 04/20/19 21:00 04/20/19 21:13 Morphine PO 15 mg TID [facility] Administration Ondansetron HCl 4 mg 04/19/19 14:16 Zofran IV Q6H PRN Nausea/Vomiting Oxybutynin Chloride 10 mg 04/21/19 09:00 Oxybutynin Er PO DAILY [facility] Tiotropium Br/ 0 each 04/21/19 09:00 Olodaterol Hcl [ INH Stiolto Respimat DAILY [facility] Inhal Jones] Senna/Docusate Sodium 1 tab 04/20/19 17:00 04/20/19 21:15 Senna Plus PO 1 tab QID [facility] Administration Sodium Chloride 10 ml 04/19/19 03:41 04/19/19 04:39 Saline Flush FLUSH 10 ml ASDIRECTED PRN Administration Keep Vein Open Tamsulosin HCl 0.4 mg 04/21/19 09:00 Flomax PO DAILY [facility] Discontinued Medications Generic Name Dose Route Start Last Admin Trade Name Freq PRN Reason Stop Dose Admin Diatrizoate Meglum/Diatrizoate Sod 120 ml 04/20/19 11:57 04/20/19 13:28 Gastrografin 37% PO 04/20/19 11:58 90 ml ONETIME ONE Administration Sodium Chloride 1,000 mls @ 999 mls/hr 04/19/19 04:00 04/19/19 04:39 Normal Saline IV 999 mls/hr ONETIME [facility] Administration Iopamidol 100 ml 04/20/19 11:57 04/20/19 13:28 Isovue-300 (61%) IVPUSH 04/20/19 11:58 100 ml ONETIME ONE Administration Morphine Sulfate 2 mg 04/19/19 14:16 Morphine IVPUSH 04/20/19 14:21 Q2H PRN Pain (severe 7-10) Morphine Sulfate 15 mg 04/20/19 11:00 04/20/19 23:59 Ms Contin PO Not Given BID [facility] Sodium Chloride 10 ml 04/20/19 11:57 04/20/19 13:29 Saline Flush FLUSH 04/20/19 14:00 10 ml ONETIME PRN Administration IV FLUSH - Re-Assessments/Exams Free Text/Narrative Re-Assessment/Exam: 04/19/19 12:34 Patient is not improving here in the emergency department. I suspect a lot of his due to increasing his MS Contin from 30 mg a day to 60 mg a day. Long discussion with the family and social work discussed this to he really needs to be on hospice. He declined surgery at this point the family agrees he should not have surgery at this point if indeed he is developing a cecal volvulus. I reviewed his records it is possible he is developing a pneumonia around his tumor site in the left lung and I have discussed this with the family and they really do not want to pursue further treatment for this at this point the patient is probably best served to come into the hospital see if his medications wear down and he wakes up some and then pursuing probable penitentiary placement with hospice. It just does not sound like the family is got the resources or the ability to care for him at his current condition at home. The patient was seen by Dr. Lynn our on-call surgeon who believes surgical repair would be very risky at this point his interpretation of this is actuation is the patient is basically shutting down. I agree with this and I have discussed this in detail with the family and they are aware of the situation they confirm he is a DNR and should only be comfort care only. Case discussed with Dr. Alvarenga who will evaluate the patient. Departure - Departure Time of Disposition: 12:37 Disposition: DC/Tfer to Medicaid [facility] Clinical Impression: Metastatic non-small cell lung cancer, Failure to thrive, Sedated due to medication - Discharge Information Sepsis Event Note - Focused Exam Date Exam was Performed: 04/19/19 Time Exam was Performed: 13:29 <Primitivo Garrett - Last Filed: 04/21/19 07:31> ED HPI GENERAL MEDICAL PROBLEM - General Source of Information: Reports: Patient, EMS, RN Notes Reviewed - History of Present Illness INITIAL COMMENTS - FREE TEXT/NARRATIVE: 74-year-old male has been brought here by EMS after having been found on the floor beside the couch of his home. Patient is drowsy on arrival to ED, has no major complaints not giving much information. His is not yet here to give further history. From old records it appears that he does have history of metastatic lung cancer. To the care of Dr. Mueller, oncologist. Noted to of had at least one or 2 transfusions back in February, a month ago. At this time he denies chest pain or difficulty breathing. He denies headache. He denies abdominal pain nausea or vomiting. He does admit to generalized weakness. He does not recall or is not able to tell us what happened. Past Medical History HEENT History: Reports: Impaired Vision, Other (See Below) Other HEENT History: impacted cerumen, glasses, dentures Cardiovascular History: Reports: CAD, High Cholesterol, Hypertension, SC, Stents , Other (See Below) Other Cardiovascular History: bradycardia, ASCVD, dysrhythmia, chronic ischemic heart disease, heart cath with stents Respiratory History: Reports: COPD, PE, Sleep Apnea, SOB Other Respiratory History: use of bipap, chronic cough, emphysema Gastrointestinal History: Reports: GERD Genitourinary History: Reports: Other (See Below) Other Genitourinary History: prostate hypertrophy ASSISTANT PROFESSOR OF COMMUNICATION History: Reports: None Musculoskeletal History: Reports: Other (See Below) Other Musculoskeletal History: joint pain, broken bones, degenerative joint disease Neurological History: Reports: Concussion, Vertigo Psychiatric History: Reports: None Endocrine/Metabolic History: Reports: Hypothyroidism, Obesity/BMI 30+ Hematologic History: Reports: None Immunologic History: Reports: None Oncologic (Cancer) History: Reports: None Dermatologic History: Reports: Eczema, Other (See Below) Other Dermatologic History: contact dermatitis, rash, seborrheic keratosis - Past Surgical History Other Cardiovascular Surgeries/Procedures: stents GI Surgical History: Reports: Colonoscopy, Hernia, Inguinal Neurological Surgical History: Reports: Other (See Below) Other Neurological Surgeries/Procedures: spine surgery Musculoskeletal Surgical History: Reports: Other (See Below) Other Musculoskeletal Surgeries/Procedures:: 4-5 back surgeries, ankle fracture with repair Social & Family History - Family History Family Medical History: Noncontributory - Caffeine Use Caffeine Use: Reports: Coffee, Soda ED ROS GENERAL - Review of Systems Review Of Systems: See Below Constitutional: Reports: Weakness HEENT: Denies: Throat Pain (Generalized) Respiratory: Denies: Shortness of Breath Cardiovascular: Denies: Chest Pain GI/Abdominal: Denies: Abdominal Pain, Nausea, Vomiting Musculoskeletal: Denies: Neck Pain (Mild), Arm Pain Skin: Reports: No Symptoms Neurological: Reports: Dizziness, Weakness (Generalized). Denies: Trouble Speaking ED EXAM, NEURO - Physical Exam Exam: See Below General Appearance: Alert, Other (Drowsy but does make eye contact and does answer simple questions, does obey simple commands) Eye Exam: Bilateral Eye: PERRL Ears: Normal External Exam Nose: Normal Inspection Throat/Mouth: Normal Inspection Head Exam: Atraumatic Neck: Tender Midline Respiratory/Chest: No Respiratory Distress, Lungs Clear, Normal Breath Sounds Cardiovascular: Regular Rate, Rhythm GI/Abdominal: Soft, Non-Tender Neurological: No Motor/Sensory Deficits, Other (Drowsy but awake, does make eye contact does answer simple questions and does follow simple commands) Extremities: Normal Inspection, Normal Range of Motion Skin Exam: Warm, Dry, Normal Color EKG INTERPRETATION EKG Date: 04/19/19 Rhythm: NSR [place]: Normal P-Wave: Present QRS: Other (Q waves inferior leads) ST-T: Normal Course - Orders/Labs/Meds Labs: Laboratory Tests 04/19/19 04/19/19 04/19/19 Range/Units 04:04 04:04 05:45 WBC 19.74 H (4.23-9.07) K/mm3 RBC 2.48 L (4.63-6.08) M/mm3 Hgb 7.8 L D (13.7-17.5) gm/dl Hct 25.9 L (40.1-51.0) % MCV 104.4 H (79.0-92.2) fl MCH 31.5 (25.7-32.2) pg MCHC 30.1 L (32.2-35.5) g/dl RDW Std Deviation 79.7 H (35.1-43.9) fL Plt Count 330 D (163-337) K/mm3 MPV 8.3 L (9.4-12.3) fl Neut % (Auto) 85.6 H (34.0-67.9) % Lymph % (Auto) 5.8 L (21.8-53.1) % Morrow % (Auto) 6.6 (5.3-12.2) % Eos % (Auto) 1.0 (0.8-7.0) Baso % (Auto) 0.2 (0.1-1.2) % Neut # (Auto) 16.90 H (1.78-5.38) K/mm3 Lymph # (Auto) 1.15 L (1.32-3.57) K/mm3 Morrow # (Auto) 1.31 H (0.30-0.82) K/mm3 Eos # (Auto) 0.20 (0.04-0.54) K/mm3 Baso # (Auto) 0.03 (0.01-0.08) K/mm3 Manual Slide Review Abnormal smear Sodium 135 L (136-145) mEq/L Potassium 3.4 L (3.5-5.1) mEq/L Chloride 98 (98-107) mEq/L Carbon Dioxide 27 (21-32) mEq/L Anion Gap 13.4 (5-15) BUN 17 (7-18) mg/dL Creatinine 1.0 (0.7-1.3) mg/dL Est Cr Clr Drug Dosing TNP Estimated GFR (MDRD) > 60 (>60) mL/min BUN/Creatinine Ratio 17.0 (14-18) Glucose 132 H (83-115) mg/dL Lactic Acid 0.8 (0.4-2.0) mmol/L Calcium 9.6 (8.5-10.1) mg/dL Total Bilirubin 1.1 H (0.2-1.0) mg/dL AST 19 (15-37) U/L ALT 28 (16-63) U/L Alkaline Phosphatase 87 (46-116) U/L Total Protein 6.8 (6.4-8.2) g/dl Albumin 1.9 L (3.4-5.0) g/dl Globulin 4.9 gm/dL Albumin/Globulin Ratio 0.4 L (1-2) - Re-Assessments/Exams Free Text/Narrative Re-Assessment/Exam: 04/19/19 04:49. Have obtain more history from his . She verifies that he does have lung cancer first diagnosed about 16 months ago. He has had various types of chemotherapy with his last oral chemotherapy about 2 weeks ago. He has had recurrent anemia requiring recent blood transfusions. He has been getting more confused over the past 1-2 weeks worsening generalized weakness. She states she was in the bathroom at the time of his fall this morning. He was sitting in some type of a reclining chair or couch with the leg rest out. She believes he tried to get up on his own but with the foot rest out was unable to get up on his feet and slid down off of the chair onto the floor. He was too weak to get up on his own or even with her assistance. Because of this and worsening generalized weakness she was agreeable to having him transported here to the emergency department for further evaluation. 04/19/19 05:30. White blood count has come back elevated at over 19,000. Check a rectal temp and he is afebrile. Chest x-ray shows increased size density mid to mid upper lung field Ryer chest x-ray of December 3 months ago. I suspect this is primarily increased tumor growth although he could have an underlying pneumonia there is well. His states that he has occasional cough but has not been coughing any more than usual. According to her his appetite has been very poor not eating much at all for the past week. She has been making him drink water, surprisingly labs do not show significant dehydration. Of note his morphine was increased a week ago likely is contributing to his increasing drowsiness confusion weakness poor appetite and possible constipation. The right rib x-rays show a large amount of gas in the right upper abdomen. His abdomen is fairly, mild tenderness upper and midabdomen. He has not been vomiting but feel a need to check a 2 view abdomen to see if there is ileus or any sign of bowel obstruction developing. Also in view of the high white blood count have ordered a lactic acid. 04/19/19 07:15. Lactic acid 0.8. Markedly increased gas upper abdomen. Radiology read now reports prominent gas-filled cecum within the upper mid abdomen suggestive for cecal volvulus. See radiology report for details. I have discussed this with Dr. Lynn, General Surgeon reconciliation accountant. He will come see patient in ED. it is after change of shift so will transfer care to Dr. Ojeda at this time. Sepsis Event Note - Evaluation Sepsis Screening Result: No Definite Risk - Focused Exam Date Exam was Performed: 04/21/19 Time Exam was Performed: 07:30
[2019-04-19] MEDS ORDERED: Sodium Chloride 0.9% 1,000 ML IV SCH (04:00)
--- NOTE | 2019-04-19 07:01 | CR ---
Abdomen: Supine and upright views the abdomen were obtained. Slightly prominent gas-filled cecum noted within the upper mid abdomen. Findings suggest cecal volvulus. Stool noted within the left colon. Calcifications are seen within the right upper abdomen most likely representing combination of nonobstructing renal calculi and possible gallstones. Calcifications are seen within the pelvis which are compatible with phleboliths. Disc space narrowing and endplate spurring is noted within the spine. Impression: 1. Findings suggestive of cecal volvulus. 2. Other findings as noted above. Diagnostic code #3 This report was dictated in [place] Standard Time
--- NOTE | 2019-04-19 07:22 | CT ---
Head CT Technique: Multiple axial sections through the brain were obtained. Intravenous contrast was not utilized. Comparison: No prior intracranial imaging is available. Findings: Ventricles along with basal cisterns and sulci over the convexities are mildly prominent. No abnormal parenchymal densities are seen. No evidence of intracranial hemorrhage. No midline shift or mass effect is seen. Bone window settings were reviewed. Mucosal thickening is noted within the maxillary sinuses. Mild mucosal thickening is noted within the ethmoid sinuses. Mastoid sinuses are clear. No acute calvarial abnormality is appreciated. Impression: 1. Sinus disease most likely chronic unless patient has acute sinus symptoms. 2. Mild generalized atrophy. 3. No acute intracranial abnormality is identified. Diagnostic code #3 This report was dictated in [place] Standard Time I agree with preliminary report from [facility], finalized on 04/19/19, 5:58 AM Central Time
--- NOTE | 2019-04-19 07:22 | CR ---
Chest and right ribs: Frontal view of the chest is obtained as well as four views of the right ribs. Comparison: Prior chest x-ray of 09/02/18. Left-sided infusion port is seen. Degenerative change is noted within glenohumeral joint as well as within the spine. No discrete right-sided rib fracture is seen. Diffuse increased density within the left mid chest is seen. Uncertain if this represents pleural thickening or other change from previous therapy. CT would be needed to further define. Heart size is normal. Tortuous thoracic aorta is seen. Impression: 1. Degenerative change. 2. No discrete right-sided rib fracture is seen. Nondisplaced fracture or other rib abnormality could easily be missed. 3. Increased density within the left side of the chest, uncertain if this represents pleural thickening or parenchymal change. Noncontrast chest CT would be needed to further define if clinically indicated. Diagnostic code #3 This report was dictated in [place] Standard Time
--- NOTE | 2019-04-19 07:36 | CR ---
Pelvis: AP view of the pelvis was obtained. Comparison: No prior pelvis study. Mild joint space narrowing is noted within the left hip. Sacroiliac joints appear within normal limits. Disc space narrowing and endplate spurring is noted within the lumbar spine. No acute fracture or other abnormality is appreciated. Impression: 1. Degenerative change. 2. Nothing acute is appreciated on AP pelvis study. Diagnostic code #2 This report was dictated in [place] Standard Time
--- NOTE | 2019-04-19 07:40 | CT ---
CT cervical spine Technique: Multiple axial sections were obtained from above C1 inferiorly to the top of T3. Reconstructed coronal and sagittal images were obtained. Comparison: Prior CT cervical spine study of 01/15/14. Findings: Disc space narrowing is noted at C2-C3, C3-C4, C5-C6, C6-C7 and C7-T1. Posterior osteophytes and mild degenerative apophyseal change is noted throughout the cervical spine. Anterior osteophytes are also seen throughout the majority of the cervical spine. Degenerative change also noted between the dens and anterior arch of C1. Moderate right-sided neural foraminal stenosis is noted at C4-C5. Severe right-sided neural foraminal stenosis is noted at C5-C6. Other neural foramina are grossly maintained. No bony central canal stenosis is seen. Mild atherosclerotic calcification is seen within the carotid arteries. Emphysematous change is noted within both lung apices with subpleural blebs. No fracture is identified. No abnormal subluxation is seen. Impression: 1. Diffuse degenerative change. Degenerative change remains fairly stable from previous exam. 2. Other findings as noted above which are chronic. 3. Nothing acute is appreciated. Diagnostic code #2 This report was dictated in [place] Standard Time I agree with preliminary report from [facility], finalized on 04/19/19, 5:59 AM Central Time
--- NOTE | 2019-04-19 12:21 | PCM.CONS ---
H&P History of Present Illness - General Date of Service: 04/19/19 Admit Problem/Dx: reason for consult is evidence of large bowel obstruction on plain x-rays Source of Information: Family History Limitations: Reports: Altered Mental Status - History of Present Illness Other HPI/Comments: Mr. Beckford is a 74 yo man with metastatic lung cancer diagnosed over one year ago who presents with his after he fell out of a chair due to worsening weakness and fatigue. He had recently stopped his chemotherapy due to side- effects, and his reports a long, gradual decline in his health and quality of life. 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 The patient reports no abdominal pain but he is somnolent. His abdomen is mildly distended, soft, tympanitic, without palpable mass. - Related Data Allergies/Adverse Reactions: Allergies Allergy/AdvReac Type Severity Reaction Status Date / Time Fish Containing Products Allergy Airway Verified 04/19/19 03:35 Tightness Home Medications: Home Meds Levothyroxine [Levothroid] 137 mcg PO DAILY 01/15/14 [History] Albuterol Sulfate [Ventolin Hfa] 1 - 2 puff INH Q4H PRN 10/01/16 [History] EPINEPHrine [Epipen] 1 dose IM ASDIRECTED PRN 10/01/16 [History] Finasteride 5 mg PO DAILY 10/01/16 [History] Metoprolol Succinate [Toprol XL] 50 mg PO DAILY 10/01/16 [History] Tamsulosin [Flomax] 0.4 mg PO DAILY 10/01/16 [History] atorvaSTATin [Lipitor] 40 mg PO DAILY 10/01/16 [History] Apixaban [Eliquis] 5 mg PO BID 08/21/17 [History] Oxybutynin [Oxybutynin ER] 10 mg PO DAILY 08/21/17 [History] Pantoprazole Sodium [Protonix] 40 mg PO BID 04/08/18 [History] Benzonatate [Tessalon Perle] 100 mg PO BID 02/12/19 [History] Diltiazem HCl [Cartia Xt] 120 mg PO DAILY 02/12/19 [History] Flaxseed Oil 1,000 mg PO DAILY 02/12/19 [History] Furosemide [Lasix] 20 mg PO MOWEFR 02/12/19 [History] Magnesium Oxide [Magnesium] 400 mg PO BID 02/12/19 [History] Multivitamin [Multi-Vitamin Daily] 1 tab PO DAILY 02/12/19 [History] Tiotropium Br/Olodaterol HCl [Stiolto Respimat Inhal [place]] 2 puff INH DAILY [History] Docusate Sodium/Sennosides [Senna Plus] 1 tab PO QID 04/19/19 [History] Morphine Sulfate 15 mg PO QID 04/19/19 [History] Nitroglycerin [Nitrostat] 0.4 mg SL ASDIRECTED PRN 04/19/19 [History] Past Medical History HEENT History: Reports: Impaired Vision, Other (See Below) Other HEENT History: impacted cerumen, glasses, dentures Cardiovascular History: Reports: CAD, High Cholesterol, Hypertension, [place], Stents , Other (See Below) Other Cardiovascular History: bradycardia, ASCVD, dysrhythmia, chronic ischemic heart disease, heart cath with stents Respiratory History: Reports: COPD, PE, Sleep Apnea, SOB Other Respiratory History: use of bipap, chronic cough, emphysema Gastrointestinal History: Reports: GERD Genitourinary History: Reports: Other (See Below) Other Genitourinary History: prostate hypertrophy 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 Musculoskeletal History: Reports: Other (See Below) Other Musculoskeletal History: joint pain, broken bones, degenerative joint disease Neurological History: Reports: Concussion, Vertigo Psychiatric History: Reports: None Endocrine/Metabolic History: Reports: Hypothyroidism, Obesity/BMI 30+ Hematologic History: Reports: None Immunologic History: Reports: None Oncologic (Cancer) History: Reports: None Other Oncologic History: Metastatic Dermatologic History: Reports: Eczema, Other (See Below) Other Dermatologic History: contact dermatitis, rash, seborrheic keratosis - Past Surgical History Other Cardiovascular Surgeries/Procedures: stents GI Surgical History: Reports: Colonoscopy, Hernia, Inguinal Neurological Surgical History: Reports: Other (See Below) Other Neurological Surgeries/Procedures: spine surgery Musculoskeletal Surgical History: Reports: Other (See Below) Other Musculoskeletal Surgeries/Procedures:: 4-5 back surgeries, ankle fracture with repair Social & Family History - Family History Family Medical History: Noncontributory - Tobacco Use Smoking Status *Q: Unknown Ever Smoked - Caffeine Use Caffeine Use: Reports: Coffee, Soda H&P Review of Systems - Review of Systems: Review Of Systems: See Below General: Reports: Malaise, Weakness, Fatigue, Weight Loss Cardiovascular: Reports: No Symptoms Gastrointestinal: Reports: No Symptoms, Other (no flatus noted in past 24 hrs) Exam - Exam Exam: See Below - Vital Signs Vital Signs: Last Vital Signs Temp 36.9 C 04/19/19 03:33 Pulse 65 04/19/19 03:33 Resp 19 04/19/19 03:33 BP 100/58 L 04/19/19 03:33 Pulse Ox 88 L 04/19/19 03:33 - Exam Quality Assessment: Supplemental Oxygen General: Obtunded Lungs: Normal Respiratory Effort Cardiovascular: Regular Rate GI/Abdominal Exam: Soft, Non-Tender, No Mass, Distended Skin: Warm, Dry - Patient Data Lab Results Last 24 hrs: Laboratory Results - last 24 hr 04/19/19 04/19/19 04/19/19 Range/Units 04:04 04:04 05:45 WBC 19.74 H (4.23-9.07) K/mm3 RBC 2.48 L (4.63-6.08) M/mm3 Hgb 7.8 L D (13.7-17.5) gm/dl Hct 25.9 L (40.1-51.0) % MCV 104.4 H (79.0-92.2) fl MCH 31.5 (25.7-32.2) pg MCHC 30.1 L (32.2-35.5) g/dl RDW Std Deviation 79.7 H (35.1-43.9) fL Plt Count 330 D (163-337) K/mm3 MPV 8.3 L (9.4-12.3) fl Neut % (Auto) 85.6 H (34.0-67.9) % Lymph % (Auto) 5.8 L (21.8-53.1) % Jones % (Auto) 6.6 (5.3-12.2) % Eos % (Auto) 1.0 (0.8-7.0) Baso % (Auto) 0.2 (0.1-1.2) % Neut # (Auto) 16.90 H (1.78-5.38) K/mm3 Lymph # (Auto) 1.15 L (1.32-3.57) K/mm3 Jones # (Auto) 1.31 H (0.30-0.82) K/mm3 Eos # (Auto) 0.20 (0.04-0.54) K/mm3 Baso # (Auto) 0.03 (0.01-0.08) K/mm3 Manual Slide Review Abnormal smear Sodium 135 L (136-145) mEq/L Potassium 3.4 L (3.5-5.1) mEq/L Chloride 98 (98-107) mEq/L Carbon Dioxide 27 (21-32) mEq/L Anion Gap 13.4 (5-15) BUN 17 (7-18) mg/dL Creatinine 1.0 (0.7-1.3) mg/dL Est Cr Clr Drug Dosing TNP Estimated GFR (MDRD) > 60 (>60) mL/min BUN/Creatinine Ratio 17.0 (14-18) Glucose 132 H (83-115) mg/dL Lactic Acid 0.8 (0.4-2.0) mmol/L Calcium 9.6 (8.5-10.1) mg/dL Total Bilirubin 1.1 H (0.2-1.0) mg/dL AST 19 (15-37) U/L ALT 28 (16-63) U/L Alkaline Phosphatase 87 (46-116) U/L Total Protein 6.8 (6.4-8.2) g/dl Albumin 1.9 L (3.4-5.0) g/dl Globulin 4.9 gm/dL Albumin/Globulin Ratio 0.4 L (1-2) Result Diagrams: 04/19/19 04:04 04/19/19 04:04 Sepsis Event Note - Evaluation Sepsis Screening Result: No Definite Risk - Focused Exam Vital Signs: Vital Signs Temp Pulse Resp BP Pulse Ox 04/19/19 03:33 36.9 C 65 19 100/58 L 88 L Date Exam was Performed: 04/19/19 Time Exam was Performed: 12:14 Consult PN Assessment/Plan Procedures: Procedures AIRWAY INHALATION TREATMENT (01/08/18) ASSAY OF TROPONIN QUANT (09/02/18) BLOOD CULTURE FOR BACTERIA (01/08/18) BLOOD TRANSFUSION SERVICE (03/19/19) BLOOD TYPING SEROLOGIC ABO (03/19/19) BLOOD TYPING SEROLOGIC RH(D) (03/19/19) C-REACTIVE PROTEIN (01/08/18) CARDIOVASCULAR STRESS TEST (02/11/14) COLONOSCOPY AND BIOPSY (10/02/16) COLONOSCOPY W/LESION REMOVAL (10/02/16) COMPATIBILITY TEST ANTIGLOB (03/19/19) COMPLETE CBC W/AUTO DIFF WBC (09/02/18) COMPREHEN METABOLIC PANEL (09/02/18) CT ANGIOGRAPHY CHEST (08/03/15) CT HEAD/BRAIN W/O DYE (01/15/14) CT NECK SPINE W/O DYE (01/15/14) ECG MONIT/REPRT UP TO 48 HRS (11/23/14) ECG MONIT/REPRT UP TO 48 HRS (11/23/14) EGD BIOPSY SINGLE/MULTIPLE (10/02/16) ELECTROCARDIOGRAM TRACING (09/02/18) EMERGENCY DEPT VISIT (09/02/18) EMERGENCY DEPT VISIT (01/08/18) EMERGENCY DEPT VISIT (08/17/14) EMERGENCY DEPT VISIT (01/15/14) HT MUSCLE IMAGE SPECT MULT (02/11/14) MEASURE BLOOD OXYGEN LEVEL (12/06/14) PROTHROMBIN TIME (09/02/18) RBC ANTIBODY SCREEN (03/19/19) ROUTINE VENIPUNCTURE (03/19/19) RPR S/N/AX/GEN/TRNK 2.5CM/< (08/17/14) THER/PROPH/DIAG IV INF INIT (01/08/18) THROMBOPLASTIN TIME PARTIAL (09/02/18) TISSUE EXAM BY PATHOLOGIST (10/02/16) TTE W/DOPPLER COMPLETE (10/16/16) US COMPL JOINT R-T W/IMG (10/16/16) X-RAY EXAM CHEST 1 VIEW (09/02/18) X-RAY EXAM CHEST 2 VIEWS (01/08/18) X-RAY EXAM OF SHOULDER (01/15/14) Problem List Initiated/Reviewed/Updated: Yes Plan: I had a discussion with the patient's regarding his quality of life, prognosis, and goals of care. I discussed the worrisome findings of large bowel obstruction on imaging with a leukocytosis, and offered diagnostic laparoscopy with possible laparotomy and possible bowel resection depending on findings. I also made clear that I do not think the patient would tolerate a major operation well and would be at high risk for post-operative morbidity and complications. I encouraged a family discussion now to help determine the goals of care and have made myself available for further discussion and possible intervention. Requesting Provider: meredith Date Consult Requested: 04/19/19 Reason for Consult: large bowel obstruction Patient History Reviewed: Yes Admission H&P Reviewed: Yes Consult Result/Summary:: I recommend that the family discuss goals of care and reach consensus on whether surgical treatment ought to be pursued, in line with what they feel the patient's wishes would be. At this time, I sense that the family will opt for comfort measures. Notified Requestor: Yes Time Spent (in minutes): 30
[2019-04-19] MEDS ORDERED: Morphine 2 MG/ML Syringe IVPUSH PRN (14:16)
[2019-04-19] MEDS ORDERED: Ondansetron 4 MG/2 ML SDV IV PRN (14:16)
[2019-04-19] MEDS ORDERED: Ketorolac 30 MG/ML SDV IV PRN (14:16)
--- NOTE | 2019-04-19 15:52 | CR ---
Chest: Portable view of the chest was obtained. Comparison: Prior chest x-ray of 04/19/19 (performed at time 4:30 AM). Diffuse increased density within the left chest is seen. As mentioned on previous study, uncertain as to etiology whether this is due to pleural thickening or parenchymal change or even overlapping soft tissue edema. Right lung is clear. Left-sided infusion port is noted. Heart size is normal. Tortuous thoracic aorta is seen. Impression: 1. Diffuse increased density within the left chest. This is similar to prior study performed earlier on the same day. Please see above for further discussion. 2. Other findings within the chest are stable. Diagnostic code #3 This report was dictated in [place] Standard Time
[2019-04-19] MEDS: Lactated Ringers 1,000 ML IV SCH (15:54)
[2019-04-20] MEDS: Lactated Ringers 1,000 ML IV SCH ×2 (07:38→17:35)
[2019-04-20] MEDS ORDERED: Morphine 15 MG Tab.ER PO SCH (11:00)
[2019-04-20] MEDS ORDERED: Sodium Chloride 0.9% 10 ML Syringe FLUSH PRN (11:57)
[2019-04-20] MEDS ORDERED: Iopamidol 612 MG/ML 100 ML Bottle IVPUSH ONE (11:57)
[2019-04-20] MEDS ORDERED: Diatrizoate Meglumine/Diatrizoate Sodium 37% 120 ML Bottle PO ONE (11:57)
--- NOTE | 2019-04-20 12:32 | PCM.HP.2 ---
H&P History of Present Illness - General Date of Service: 04/19/19 (\\) Admit Problem/Dx: Worsening altered mental status - History of Present Illness Initial Comments - Free Text/Narative: History obtained from due to patient being so somnolent This is a 74-year-old male with past medical history of metastatic non small cell lung cancer who is brought to the ED by EMS for worsening somnolence and sliding out of chair. states patient has been having steadily decreasing appetite for approximately one month, to the point that now he barely eats 2-3 spoonfuls of food, mainly raisin bran. She states patient slid out of chair and she found him on the floor, unable to move hi or pick him up she decided to call EMS for further assistance and decided to bring him to the ED. Of note patient was recently on oral chemotherapy that was stopped about 1 week ago due to weakness. His long acting morphine dose was increased last week from 30 to 60mg QD. - Related Data Allergies/Adverse Reactions: Allergies Allergy/AdvReac Type Severity Reaction Status Date / Time Fish Containing Products Allergy Airway Verified 04/19/19 03:35 Tightness Home Medications: Home Meds Levothyroxine [Levothroid] 137 mcg PO DAILY 01/15/14 [History] Finasteride 5 mg PO DAILY 10/01/16 [History] Metoprolol Succinate [Toprol XL] 50 mg PO DAILY 10/01/16 [History] Tamsulosin [Flomax] 0.4 mg PO DAILY 10/01/16 [History] atorvaSTATin [Lipitor] 40 mg PO DAILY 10/01/16 [History] Apixaban [Eliquis] 5 mg PO BID 08/21/17 [History] Oxybutynin [Oxybutynin ER] 10 mg PO DAILY 08/21/17 [History] Benzonatate [Tessalon Perle] 100 mg PO BID 02/12/19 [History] Diltiazem HCl [Cartia Xt] 120 mg PO DAILY 02/12/19 [History] Furosemide [Lasix] 20 mg PO MOWEFR 02/12/19 [History] Multivitamin [Multi-Vitamin Daily] 1 tab PO DAILY 02/12/19 [History] Tiotropium Br/Olodaterol HCl [Stiolto Respimat Inhal [place]] 2 puff INH DAILY [History] Docusate Sodium/Sennosides [Senna Plus] 1 tab PO QID 04/19/19 [History] Megestrol [Megace 40 MG/ML Susp] 800 mg PO DAILY 04/20/19 [History] Morphine 15 mg PO TID 04/20/19 [History] Past Medical History HEENT History: Reports: Impaired Vision, Other (See Below) Other HEENT History: impacted cerumen, glasses, dentures Cardiovascular History: Reports: Afib, CAD, High Cholesterol, Hypertension, [place], Stents, Other (See Below) Other Cardiovascular History: bradycardia, ASCVD, dysrhythmia, chronic ischemic heart disease, heart cath with stents Respiratory History: Reports: COPD, PE, Sleep Apnea, SOB Other Respiratory History: use of bipap, chronic cough, emphysema Gastrointestinal History: Reports: GERD Genitourinary History: Reports: Other (See Below) Other Genitourinary History: prostate hypertrophy 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 Musculoskeletal History: Reports: Other (See Below) Other Musculoskeletal History: joint pain, broken bones, degenerative joint disease Neurological History: Reports: Concussion, Vertigo Psychiatric History: Reports: None Endocrine/Metabolic History: Reports: Hypothyroidism, Obesity/BMI 30+ Hematologic History: Reports: Anticoagulation Therapy, Blood Transfusion(s) Immunologic History: Reports: None Oncologic (Cancer) History: Reports: Lung, Metastatic Other Oncologic History: Metastatic Dermatologic History: Reports: Eczema, Other (See Below) Other Dermatologic History: contact dermatitis, rash, seborrheic keratosis - Infectious Disease History Infectious Disease History: Reports: Chicken Pox - Past Surgical History Other Cardiovascular Surgeries/Procedures: stents GI Surgical History: Reports: Colonoscopy, Hernia, Inguinal Male Surgical History: Reports: Vasectomy Neurological Surgical History: Reports: Other (See Below) Other Neurological Surgeries/Procedures: spine surgery Musculoskeletal Surgical History: Reports: Other (See Below) Other Musculoskeletal Surgeries/Procedures:: 4-5 back surgeries, ankle fracture with repair Social & Family History - Family History Family Medical History: Noncontributory - Tobacco Use Smoking Status *Q: Former Smoker Used Tobacco, but Quit: Yes Month/Year Tobacco Last Used: 11/2005 Second Hand Smoke Exposure: No - Caffeine Use Caffeine Use: Reports: None - Recreational Drug Use Recreational Drug Use: No H&P Review of Systems - Review of Systems: Review Of Systems: Unable To Obtain Reason Not Obtained: Patient is very somnolent and barely mumbles one worded answers Free Text/Narrative: Constantly falling asleep during interview Exam - Exam Exam: See Below - Vital Signs Vital Signs: Last Vital Signs Temp 98.1 F 04/20/19 07:44 Pulse 61 04/20/19 07:44 Resp 16 04/20/19 07:44 BP 104/54 L 04/20/19 07:44 Pulse Ox 93 L 04/20/19 07:44 Weight: 77.337 kg - Exam General: Lethargic. No: Mild Distress, Moderate Distress, Severe Distress HEENT: Hearing Intact, Mucosa Moist & [place], Nares Patent, Normal Nasal Septum Neck: Supple, Trachea Midline, +2 Carotid Pulse wo Bruit. No: Lymphadenopathy Lungs: Decreased Breath Sounds. No: Crackles, Rales, Rhonchi, Wheezing Cardiovascular: Regular Rate, Regular Rhythm. No: Systolic Murmur, Diastolic Murmur, Rubs, Gallop/S3, Gallop/S4 GI/Abdominal Exam: No Distention, Tender, Abnormal Bowel Sounds. No: Distended , Guarding, Rigid, Rebound, Other (grimaces to palpation) Extremities: Normal Inspection, Non-Tender, Normal Capillary Refill, Pedal Edema Peripheral Pulses: 2+: Radial (L), Radial (R), Dorsalis Pedis (L), Dorsalis Pedis (R) Skin: Warm, Dry - Patient Data Result Diagrams: 04/20/19 04:50 04/20/19 04:50 Sepsis Event Note - Evaluation Sepsis Screening Result: No Definite Risk - Focused Exam Vital Signs: Vital Signs Temp Pulse Resp BP Pulse Ox 04/20/19 07:44 98.1 F 61 16 104/54 L 93 L 04/20/19 02:51 98.1 F 88 16 106/61 92 L Date Exam was Performed: 04/20/19 Time Exam was Performed: 12:47 - Problem List (1) Sedated due to medication SNOMED Code(s): 93386061 ICD Code: R40.4 - TRANSIENT ALTERATION OF AWARENESS; T50.905A - ADVERSE EFFECT OF UNSP DRUG/MEDS/BIOL SUBST, INIT Status: Acute Current Visit: Yes (2) Cecal volvulus SNOMED Code(s): 597823539 ICD Code: K56.2 - VOLVULUS Status: Acute Current Visit: Yes (3) Leukocytosis SNOMED Code(s): 455009448, 471121844 ICD Code: D72.829 - ELEVATED WHITE BLOOD CELL COUNT, UNSPECIFIED Status: Acute Current Visit: Yes (4) Metastatic non-small cell lung cancer SNOMED Code(s): 583620101, 760919232 ICD Code: C34.90 - MALIGNANT NEOPLASM OF UNSP PART OF UNSP BRONCHUS OR LUNG Status: Acute Current Visit: Yes (5) Acute on chronic respiratory failure with hypoxemia SNOMED Code(s): 53589921898189730 ICD Code: J96.21 - ACUTE AND CHRONIC RESPIRATORY FAILURE WITH HYPOXIA Status: Acute Current Visit: Yes (6) Microcytic hypochromic anemia SNOMED Code(s): 33847662 ICD Code: D50.9 - IRON DEFICIENCY ANEMIA, UNSPECIFIED Status: Acute Current Visit: Yes (7) Hyponatremia SNOMED Code(s): 48419356 ICD Code: E87.1 - HYPO-OSMOLALITY AND HYPONATREMIA Status: Acute Current Visit: Yes (8) Hypokalemia SNOMED Code(s): 89488530 ICD Code: E87.6 - HYPOKALEMIA Status: Acute Current Visit: Yes (9) Malignant cachexia SNOMED Code(s): 763903037 ICD Code: R64 - CACHEXIA Status: Acute Current Visit: Yes (10) Hypoalbuminemia SNOMED Code(s): 927760551 ICD Code: E88.09 - OTH DISORDERS OF PLASMA-PROTEIN METABOLISM, NEC Status: Acute Current Visit: Yes (11) Decreased oral intake SNOMED Code(s): 213972543 ICD Code: R63.8 - OTHER SYMPTOMS AND SIGNS CONCERNING FOOD AND FLUID INTAKE Status: Acute Current Visit: Yes (12) Hyperbilirubinemia SNOMED Code(s): 96416972 ICD Code: E80.6 - OTHER DISORDERS OF BILIRUBIN METABOLISM Status: Acute Current Visit: Yes (13) Hypothyroidism SNOMED Code(s): 76426522 ICD Code: E03.9 - HYPOTHYROIDISM, UNSPECIFIED Status: Acute Current Visit : Yes (14) Benign prostatic hyperplasia SNOMED Code(s): 820504542 ICD Code: N40.0 - BENIGN PROSTATIC HYPERPLASIA WITHOUT LOWER URINRY TRACT SYMP Status: Acute Current Visit: Yes (15) On continuous oral anticoagulation SNOMED Code(s): 311097711 ICD Code: Z79.01 - RETIREMENT (CURRENT) USE OF ANTICOAGULANTS Status: Acute Current Visit: Yes Problem List Initiated/Reviewed/Updated: Yes Assessment/Plan Comment:: Sedation due to pain medication Worsening somnolence and altered mental status Patient is on chronic long acting PO morphine due to active neoplastic process Dose was increased around a week and a half ago to double previous dose--> likely cause of AMS PLAN - Decrease PO morphine to 15 TID - Monitor for sedations - Bowel regimen Cecal volvulus Leukocytosis with toxic granulation and neutrophil predominance Cecal volvulus on abdominal Xray PLAN - Consult surgery - Discuss case with family and they will get back to me regarding level of care they want to pursue Metastatic non-small cell lung cancer Malignant cachexia Microcytic and hypochromic anemia Hypoalbuminemia Decreased oral intake Diagnosed 1.5 years ago and started on IV chemotherapy from 02/2018-05/2018--> discontinued due to neuropathy No chemotherapy for 2 weeks and then was started on PO chemotherapy on 06/2018 until 1.5 weeks ago when it was stopped due to weakness Told by oncologist he "can't tolerate chemotherapy anymore" Presence of Port-a-cath Decreased appetite for over a month now to the point where he eats 2-3 bites of anything a day now Discussed current state of patient with him and family, patient voiced he would think about it, talk to his family and let me know PLAN - Adjust morphine dose - Discuss goals of care and adjust management after conversation in AM Acute on chronic respiratory failure with hypoxemia Patient on 2L NC at home Came in to the ED with SatO2 of 88%, baseline >92 PLAN - Continue NC - PRN DuoNebs and guaifenesin Hyponatremia Hypokalemia Likely 2/2 poor oral ingestion and volume depletion PLAN - Start on IVF - Repeat levels in AM Atrial fibrillation on Eliquis Rate on admission 65x' Pending home medications PLAN - Reconcile home medications once available Hyperbilirubinemia rest of LFT's within normal limits Could be from decrease oral intake and hypovolemia PLAN - Repeat in AM PROPHYLAXIS: DVT- Eliquis GI- not indicated CODE STATUS: FULL CODE DISPOSITION: Patient will be admitted to medical floor, currently he is a full code status but I have discussed case with family members and patient and they will discuss goals of care, code status and will touch base in the AM. Patient lives in home with who is primary caregiver. Mobile until yesterday, walking with walker. - Mortality Measure Prognosis:: Poor
--- NOTE | 2019-04-20 13:12 | PCM.PN ---
- General Info Date of Service: 04/20/19 Subjective Update: Feeling better Communicating more Awake Alert and oriented Ate breakfast, tolerated Slept OK - Patient Data Vitals - Most Recent: Last Vital Signs Temp 98.1 F 04/20/19 07:44 Pulse 61 04/20/19 07:44 Resp 16 04/20/19 07:44 BP 104/54 L 04/20/19 07:44 Pulse Ox 93 L 04/20/19 07:44 Weight - Most Recent: 77.337 kg - Exam General: Alert, Oriented, Cooperative, No Acute Distress HEENT: Pupils Equal, Pupils Reactive, EOMI, Mucous Membr. Moist/[place]. No: Scleral Icterus Neck: Supple, Trachea Midline, No JVD, No Thyromegaly, +2 Carotid Pulse wo Bruit. No: Lymphadenopathy Lungs: Decreased Breath Sounds. No: Crackles, Rales, Rhonchi, Wheezing Cardiovascular: Regular Rate, Regular Rhythm. No: Murmurs, Gallops, Rubs GI/Abdominal Exam: Normal Bowel Sounds, Soft, Non-Tender. No: Distended, Guarding, Rigid Back Exam: Normal Inspection, Full Range of Motion. No: CVA Tenderness (L), CVA Tenderness (R) Extremities: Normal Inspection, Non-Tender, Normal Capillary Refill, Pedal Edema Peripheral Pulses: 2+: Radial (L), Radial (R) Sepsis Event Note - Evaluation Sepsis Screening Result: No Definite Risk - Focused Exam Vital Signs: Vital Signs Temp Pulse Resp BP Pulse Ox 04/20/19 07:44 98.1 F 61 16 104/54 L 93 L 04/20/19 02:51 98.1 F 88 16 106/61 92 L Date Exam was Performed: 04/20/19 Time Exam was Performed: 16:24 - Problem List & Annotations (1) Sedated due to medication SNOMED Code(s): 11793384 Code(s): R40.4 - TRANSIENT ALTERATION OF AWARENESS; T50.905A - ADVERSE EFFECT OF UNSP DRUG/MEDS/BIOL SUBST, INIT Status: Acute Current Visit: Yes (2) Cecal volvulus SNOMED Code(s): 149632924 Code(s): K56.2 - VOLVULUS Status: Acute Current Visit: Yes (3) Leukocytosis SNOMED Code(s): 672038260, 156231894 Code(s): D72.829 - ELEVATED WHITE BLOOD CELL COUNT, UNSPECIFIED Status: Acute Current Visit: Yes (4) Metastatic non-small cell lung cancer SNOMED Code(s): 975920082, 832525428 Code(s): C34.90 - MALIGNANT NEOPLASM OF UNSP PART OF UNSP BRONCHUS OR LUNG Status: Acute Current Visit: Yes (5) Acute on chronic respiratory failure with hypoxemia SNOMED Code(s): 08512451361768369 Code(s): J96.21 - ACUTE AND CHRONIC RESPIRATORY FAILURE WITH HYPOXIA Status : Acute Current Visit: Yes (6) Microcytic hypochromic anemia SNOMED Code(s): 89461278 Code(s): D50.9 - IRON DEFICIENCY ANEMIA, UNSPECIFIED Status: Acute Current Visit: Yes (7) Hyponatremia SNOMED Code(s): 01660853 Code(s): E87.1 - HYPO-OSMOLALITY AND HYPONATREMIA Status: Acute Current Visit: Yes (8) Hypokalemia SNOMED Code(s): 26073434 Code(s): E87.6 - HYPOKALEMIA Status: Acute Current Visit: Yes (9) Malignant cachexia SNOMED Code(s): 217174619 Code(s): R64 - CACHEXIA Status: Acute Current Visit: Yes (10) Hypoalbuminemia SNOMED Code(s): 899030297 Code(s): E88.09 - OTH DISORDERS OF PLASMA-PROTEIN METABOLISM, NEC Status: Acute Current Visit: Yes (11) Decreased oral intake SNOMED Code(s): 433003310 Code(s): R63.8 - OTHER SYMPTOMS AND SIGNS CONCERNING FOOD AND FLUID INTAKE Status: Acute Current Visit: Yes (12) Hyperbilirubinemia SNOMED Code(s): 16120374 Code(s): E80.6 - OTHER DISORDERS OF BILIRUBIN METABOLISM Status: Acute Current Visit: Yes (13) Hypothyroidism SNOMED Code(s): 94197131 Code(s): E03.9 - HYPOTHYROIDISM, UNSPECIFIED Status: Acute Current Visit : Yes (14) Benign prostatic hyperplasia SNOMED Code(s): 154877517 Code(s): N40.0 - BENIGN PROSTATIC HYPERPLASIA WITHOUT LOWER URINRY TRACT SYMP Status: Acute Current Visit: Yes (15) On continuous oral anticoagulation SNOMED Code(s): 963257876 Code(s): Z79.01 - SKILLED NURSING (CURRENT) USE OF ANTICOAGULANTS Status: Acute Current Visit: Yes (16) Chronic ischemic heart disease SNOMED Code(s): 928999115 Code(s): I25.9 - CHRONIC ISCHEMIC HEART DISEASE, UNSPECIFIED Status: Acute Current Visit: Yes (17) Obstructive sleep apnea SNOMED Code(s): 57695904 Code(s): G47.33 - OBSTRUCTIVE SLEEP APNEA (ADULT) (PEDIATRIC) Status: Acute Current Visit: Yes (18) History of pulmonary embolism SNOMED Code(s): 903869099 Code(s): Z86.711 - PERSONAL HISTORY OF PULMONARY EMBOLISM Status: Acute Current Visit: Yes (19) Hypertension SNOMED Code(s): 92236602 Code(s): I10 - ESSENTIAL (PRIMARY) HYPERTENSION Status: Acute Current Visit: Yes (20) CAD (coronary artery disease) SNOMED Code(s): 94590747 Code(s): I25.10 - ATHSCL HEART DISEASE OF [place] CORONARY ARTERY W/O ANG PCTRS Status: Acute Current Visit: Yes (21) Dyslipidemia SNOMED Code(s): 370482501 Code(s): E78.5 - HYPERLIPIDEMIA, UNSPECIFIED Status: Acute Current Visit : Yes - Problem List Review Problem List Initiated/Reviewed/Updated: Yes - Plan Plan:: Sedation due to pain medication Worsening somnolence and altered mental status Patient is on chronic long acting PO morphine due to active neoplastic process Dose was increased around a week and a half ago to double previous dose--> likely cause of AMS PLAN - Decrease PO morphine to 15 TID - Monitor for sedations - Bowel regimen Cecal volvulus Leukocytosis with toxic granulation and neutrophil predominance Cecal volvulus on abdominal Xray PLAN - CT abdomen with PO and IV contrast - Discuss case with family once results are back 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 Started on carboplatin+docetaxel+Keytruda due to ALK + from 02/26/18-05/15/18 2. Had 4 cycles and went on maintenance Keytruda until 08/2018 3. Large tumor in left chest wall that was a large irregular cavity--> radiation 4. 10/10/18- Started on Alectinib 5. 03/18/19-PET scan showed progression in right and left axillary lymph nodes as well as upper abdomen, retroperitoneal lymph nodes, right external iliac chain - Discussed gemcitabine + docetaxel or just gemcitabine due to weakened state , will likely tolerate better just gemcitabine due to poor performance status - Still progressing, stop Alectinib - Hemoglobin 6.6 - 03/19- Transfused 2u PRBCs - Plan to see him back to start chemotherapy on 04/06/19 6. 04/06/19- Very confused, sleeping a lot - Only taking hydrocodone 1-2 every 6 hours, pain not fully controlled - Hb 7.7, WBC 14.8 - CT head to r/o metastatic brain disease reported negative for any causes of AMS - CXR without pneumonia but persistent airspace opacities anterior left lung which represent pleural based asses seen on previous imaging studies - BP 84/47, afebrile - Bacterial and fungal blood cultured from port and periphery - 2u PRBC with Lasix - F/U back in 1 week 7. Blood cultures negative x 7 days for fungal or bacterial infection, Blood + x 1 for coagulase negative staph. deemed a contaminant Started on Megestrol 800 QD Discussed current status of patient with , she stated they were st up for an appointment tomorrow Asked patient directly and he stated he was actively fighting and seeking treatment for his cancer I am pending his decision on whether or not he wants to proceed with blood transfusion PLAN - Continue current morphine dose - Continue Megestrol - Continue PRN Closplint 7.5 - Follow up with patient regarding decisions regarding his plan of care Acute on chronic respiratory failure with hypoxemia Patient on 2L NC at home Came in to the ED with SatO2 of 88%, baseline >92 PLAN - Continue NC - PRN DuoNebs and guaifenesin Hyponatremia Hypokalemia Likely 2/2 poor oral ingestion and volume depletion PLAN - Continue on IVF - Repeat levels in AM Hypotension in the setting of previous hypertension diagnosis BP trend 89-102/48-61 No on any meds at home except for atrial fibrillation meds PLAN - Continue to monitor Atrial fibrillation on Eliquis Previous pulmonary embolus, 2012 Presence of IVC filter Rate trend 61-93x' Home management with Eliquis, diltiazem and metoprolol succinate PLAN - Continue home meds Hyperbilirubinemia rest of LFT's within normal limits Could be from decrease oral intake and hypovolemia PLAN - Repeat in AM Coronary artery disease Chronic ischemic heart disease Dyslipidemia No acute issues Home atorvastatin PLAN - Hold for now Obstructive sleep apnea Unknown compliance Patient used to be morbidly obese PROPHYLAXIS: DVT- Eliquis GI- not indicated CODE STATUS: FULL CODE DISPOSITION: Patient will remain admitted, will order CT scan with PO and IV contrast today, will discuss options of management with family once the results are back. Patient lives in home with who is primary caregiver. does state she needs some help with home health, social workers aware. Mobile until day prior to admission in house with walker.
--- NOTE | 2019-04-20 14:48 | CT ---
CT abdomen and pelvis Technique: Multiple axial sections were obtained from above the dome of the diaphragm inferiorly through the pubic symphysis. Intravenous and oral contrast was given. Comparison: Previous abdominal x-ray of 04/19/19. Findings: Emphysematous change with emphysematous bulla is noted within both lung bases. Cyst is noted within the right and left lobes of the liver. Largest cyst measures 2.9 cm. Right kidney cyst is seen measuring 9.8 cm in greatest size. Smaller cyst is noted within both kidneys. Pancreas is somewhat atrophied. Aorta shows atherosclerotic calcification which continues into the iliac vessels. No aneurysm is seen. No bowel dilatation is seen on this exam. Contrast is noted within the small bowel. Tip of the cecum located within the upper right abdomen. Findings are felt compatible with a cecal volvulus of the bascule type. Cecum is mildly dilated with transverse dimension of 10.1 cm. Slight increased stool within the rectum is seen compatible with fecal impaction. No free fluid or inflammatory change is seen. Appendix is not visualized with certainty. Delayed images show contrast within the collecting systems of both kidneys with no contrast seen within the bladder likely relating to dehydration. Bone window settings were reviewed showing scattered degenerative change within the spine. No acute osseous finding is seen. Impression: 1. Cecum within the right upper quadrant most likely representing so-called cecal bascule. Cecal diameter is dilated with measurement of 10.1 cm. 2. Mild increased stool within the rectum compatible with mild fecal impaction. 3. Other findings believed to be incidental as described above. Diagnostic code #3 Study was dictated in [place] Standard Time
[2019-04-20] MEDS ORDERED: Morphine 15 MG Tab PO SCH (15:00)
[2019-04-20] MEDS: Morphine 15 MG Tab PO SCH (21:13)
[2019-04-20] MEDS: Apixaban 5 MG Tab PO SCH (21:16)
[2019-04-20] MEDS: Benzonatate 100 MG Cap PO SCH (21:17)
[2019-04-21] MEDS: Lactated Ringers 1,000 ML IV SCH (02:12)
[2019-04-21] MEDS: Morphine 15 MG Tab PO SCH ×4 (07:57→20:34)
[2019-04-21] MEDS ORDERED: Tiotropium Br/Olodaterol Hcl [Stiolto Respimat Inhal Spray] INH SCH (09:00)
[2019-04-21] MEDS ORDERED: Tamsulosin 0.4 MG Cap.ER PO SCH (09:00)
[2019-04-21] MEDS ORDERED: Finasteride 5 MG Tab PO SCH (09:00)
[2019-04-21] MEDS ORDERED: Oxybutynin 5 MG Tab.ER PO SCH (09:00)
[2019-04-21] MEDS ORDERED: Metoprolol Succinate 25 MG Tab.ER PO SCH (09:00)
[2019-04-21] MEDS ORDERED: Diltiazem 120 MG Cap.CD PO SCH (09:00)
[2019-04-21] MEDS ORDERED: Megestrol Susp 40 MG/ML 10 ML UD Cup PO SCH (09:00)
[2019-04-21] MEDS: Apixaban 5 MG Tab PO SCH ×2 (09:45→20:36)
[2019-04-21] MEDS: Benzonatate 100 MG Cap PO SCH ×2 (09:45→20:34)
[2019-04-21] MEDS ORDERED: Furosemide 20 MG/2 ML VIAL IVPUSH SCH ×2 (12:31→16:30)
[2019-04-21] MEDS ORDERED: Sodium Chloride 0.9% 250 ML IV SCH (13:30)
--- NOTE | 2019-04-21 13:34 | PCM.CONSN ---
- General Info Date of Service: 04/21/19 Subjective Update: No complaints, more awake and alert, eating food. - Review of Systems General: Reports: No Symptoms Gastrointestinal: Reports: No Symptoms - Patient Data Vitals - Most Recent: Last Vital Signs Temp 36.9 C 04/21/19 12:44 Pulse 59 L 04/21/19 12:44 Resp 24 H 04/21/19 12:44 BP 103/55 L 04/21/19 12:44 Pulse Ox 91 L 04/21/19 12:44 Weight - Most Recent: 79.696 kg I&O - Last 24 Hours: Intake & Output 04/20/19 04/21/19 04/21/19 22:59 06:59 14:59 Intake Total 1797 1415 360 Output Total 350 500 Balance 1447 915 360 Lab Results Last 24 Hours: Laboratory Results - last 24 hr 04/20/19 04/20/19 04/20/19 Range/Units 12:30 12:30 12:30 WBC (4.23-9.07) K/mm3 RBC (4.63-6.08) M/mm3 Hgb (13.7-17.5) gm/dl Hct (40.1-51.0) % MCV (79.0-92.2) fl MCH (25.7-32.2) pg MCHC (32.2-35.5) g/dl RDW Std Deviation (35.1-43.9) fL Plt Count (163-337) K/mm3 MPV (9.4-12.3) fl Neut % (Auto) (34.0-67.9) % Lymph % (Auto) (21.8-53.1) % [place] % (Auto) (5.3-12.2) % Eos % (Auto) (0.8-7.0) Baso % (Auto) (0.1-1.2) % Neut # (Auto) (1.78-5.38) K/mm3 Lymph # (Auto) (1.32-3.57) K/mm3 Garden # (Auto) (0.30-0.82) K/mm3 Eos # (Auto) (0.04-0.54) K/mm3 Baso # (Auto) (0.01-0.08) K/mm3 Manual Slide Review Sodium (136-145) mEq/L Potassium (3.5-5.1) mEq/L Chloride (98-107) mEq/L Carbon Dioxide (21-32) mEq/L Anion Gap (5-15) BUN (7-18) mg/dL Creatinine (0.7-1.3) mg/dL Est Cr Clr Drug Dosing mL/min Estimated GFR (MDRD) (>60) mL/min BUN/Creatinine Ratio (14-18) Glucose (83-115) mg/dL Calcium (8.5-10.1) mg/dL Iron (65-175) ug/dL TIBC (100-400) ug/dL % Saturation (20-55) % Transferrin (202-364) mg/dL Ferritin 5034 H (26-388) ng/ml Prealbumin 4.4 L (17.0-34.0) mg/dL Vitamin B12 488 (193-986) pg/ml Vitamin D 25-Hydroxy 45.2 (30.0-100.0) ng/ml Folate 18.3 (8.6-58.9) ng/mL 04/21/19 04/21/19 04/21/19 Range/Units 08:25 08:25 08:25 WBC 16.97 H (4.23-9.07) K/mm3 RBC 2.27 L (4.63-6.08) M/mm3 Hgb 7.2 L* (13.7-17.5) gm/dl Hct 24.3 L (40.1-51.0) % MCV 107.0 H (79.0-92.2) fl MCH 31.7 (25.7-32.2) pg MCHC 29.6 L (32.2-35.5) g/dl RDW Std Deviation 79.7 H (35.1-43.9) fL Plt Count 331 (163-337) K/mm3 MPV 8.2 L (9.4-12.3) fl Neut % (Auto) 83.5 H (34.0-67.9) % Lymph % (Auto) 6.1 L (21.8-53.1) % [place] % (Auto) 7.5 (5.3-12.2) % Eos % (Auto) 2.1 (0.8-7.0) Baso % (Auto) 0.2 (0.1-1.2) % Neut # (Auto) 14.17 H (1.78-5.38) K/mm3 Lymph # (Auto) 1.03 L (1.32-3.57) K/mm3 [place] # (Auto) 1.28 H (0.30-0.82) K/mm3 Eos # (Auto) 0.35 (0.04-0.54) K/mm3 Baso # (Auto) 0.03 (0.01-0.08) K/mm3 Manual Slide Review Abnormal smear Sodium 137 (136-145) mEq/L Potassium 3.5 (3.5-5.1) mEq/L Chloride 102 (98-107) mEq/L Carbon Dioxide 26 (21-32) mEq/L Anion Gap 12.5 (5-15) BUN 12 (7-18) mg/dL Creatinine 0.9 (0.7-1.3) mg/dL Est Cr Clr Drug Dosing 72.28 mL/min Estimated GFR (MDRD) > 60 (>60) mL/min BUN/Creatinine Ratio 13.3 L (14-18) Glucose 98 (83-115) mg/dL Calcium 9.2 (8.5-10.1) mg/dL Iron 44 L (65-175) ug/dL TIBC 120 (100-400) ug/dL % Saturation 37 (20-55) % Transferrin 96 L (202-364) mg/dL Ferritin (26-388) ng/ml Prealbumin (17.0-34.0) mg/dL Vitamin B12 (193-986) pg/ml Vitamin D 25-Hydroxy (30.0-100.0) ng/ml Folate (8.6-58.9) ng/mL Nicola Results Last 24 Hours: Microbiology 04/20/19 19:33 Stool Occult Blood (NICOLA) - Final Stool / Feces Med Orders - Current: Current Medications Apixaban (Eliquis) 5 mg PO BID [facility] Last Admin: 04/21/19 09:45 Dose: 5 mg Benzonatate (Tessalon Perles) 100 mg PO BID [facility] Last Admin: 04/21/19 09:45 Dose: 100 mg Diltiazem HCl (Cardizem Cd) 120 mg PO DAILY [facility] Last Admin: 04/21/19 09:41 Dose: 120 mg Finasteride (Proscar) 5 mg PO DAILY [facility] Last Admin: 04/21/19 09:43 Dose: 5 mg Furosemide (Lasix) 20 mg IVPUSH NOW [facility] Stop: 04/21/19 16:00 Sodium Chloride (Normal Saline) 250 mls @ 100 mls/hr IV ASDIRECTED [facility] Megestrol Acetate (Megace 40 Mg/Ml Susp) 800 mg PO DAILY [facility] Last Admin: 04/21/19 09:45 Dose: 800 mg Metoprolol Succinate (Toprol Xl) 50 mg PO DAILY [facility] Last Admin: 04/21/19 09:43 Dose: 50 mg Morphine Sulfate (Morphine) 15 mg PO TID [facility] Last Admin: 04/21/19 09:25 Dose: Not Given Ondansetron HCl (Zofran) 4 mg IV Q6H PRN PRN Reason: Nausea/Vomiting Oxybutynin Chloride (Oxybutynin Er) 10 mg PO DAILY [facility] Last Admin: 04/21/19 09:45 Dose: 10 mg Tiotropium Br/Olodaterol Hcl [ Stiolto Respimat Inhal [place]] 0 each INH DAILY [facility] Last Admin: 04/21/19 09:47 Dose: Not Given Senna/Docusate Sodium (Senna Plus) 1 tab PO QID [facility] Last Admin: 04/21/19 09:46 Dose: 1 tab Sodium Chloride (Saline Flush) 10 ml FLUSH ASDIRECTED PRN PRN Reason: Keep Vein Open Last Admin: 04/19/19 04:39 Dose: 10 ml Tamsulosin HCl (Flomax) 0.4 mg PO DAILY [facility] Last Admin: 04/21/19 09:43 Dose: 0.4 mg Discontinued Medications Diatrizoate Meglum/Diatrizoate Sod (Gastrografin 37%) 120 ml PO ONETIME ONE Stop: 04/20/19 11:58 Last Admin: 04/20/19 13:28 Dose: 90 ml Sodium Chloride (Normal Saline) 1,000 mls @ 999 mls/hr IV ONETIME [facility] Last Admin: 04/19/19 04:39 Dose: 999 mls/hr Lactated Ringer's (Ringers, Lactated) 1,000 mls @ 100 mls/hr IV ASDIRECTED [facility] Last Admin: 04/21/19 02:12 Dose: 100 mls/hr Iopamidol (Isovue-300 (61%)) 100 ml IVPUSH ONETIME ONE Stop: 04/20/19 11:58 Last Admin: 04/20/19 13:28 Dose: 100 ml Ketorolac Tromethamine (Toradol) 30 mg IV Q6H PRN PRN Reason: Pain (moderate 4-6) Last Admin: 04/20/19 04:34 Dose: 30 mg Morphine Sulfate (Morphine) 2 mg IVPUSH Q2H PRN PRN Reason: Pain (severe 7-10) Stop: 04/20/19 14:21 Morphine Sulfate (Ms Contin) 15 mg PO BID VINNY Last Admin: 04/20/19 23:59 Dose: Not Given Sodium Chloride (Saline Flush) 10 ml FLUSH ONETIME PRN PRN Reason: IV FLUSH Stop: 04/20/19 14:00 Last Admin: 04/20/19 13:29 Dose: 10 ml - Exam Quality Assessment: Supplemental Oxygen General: Alert, Cooperative HEENT: Pupils Equal Lungs: Normal Respiratory Effort Cardiovascular: Regular Rate GI/Abdominal Exam: Soft, Non-Tender, Distended Skin: Warm, Dry Sepsis Event Note - Evaluation Sepsis Screening Result: No Definite Risk - Focused Exam Vital Signs: Vital Signs Temp Pulse Resp BP Pulse Ox Pulse Ox 04/21/19 12:44 36.9 C 59 L 24 H 103/55 L 91 L 04/21/19 09:43 61 106/52 L 04/21/19 09:41 61 106/52 L 04/21/19 09:04 106/52 L 04/21/19 09:02 36.9 C 61 16 94 L 04/21/19 06:03 95 04/21/19 03:32 36.7 C 76 18 95/66 94 L Date Exam was Performed: 04/21/19 Time Exam was Performed: 13:28 Consult PN Assessment/Plan Procedures: Procedures AIRWAY INHALATION TREATMENT (01/08/18) ASSAY OF TROPONIN QUANT (09/02/18) BLOOD CULTURE FOR BACTERIA (01/08/18) BLOOD TRANSFUSION SERVICE (03/19/19) BLOOD TYPING SEROLOGIC ABO (03/19/19) BLOOD TYPING SEROLOGIC RH(D) (03/19/19) C-REACTIVE PROTEIN (01/08/18) CARDIOVASCULAR STRESS TEST (02/11/14) COLONOSCOPY AND BIOPSY (10/02/16) COLONOSCOPY W/LESION REMOVAL (10/02/16) COMPATIBILITY TEST ANTIGLOB (03/19/19) COMPLETE CBC W/AUTO DIFF WBC (09/02/18) COMPREHEN METABOLIC PANEL (09/02/18) CT ANGIOGRAPHY CHEST (08/03/15) CT HEAD/BRAIN W/O DYE (01/15/14) CT NECK SPINE W/O DYE (01/15/14) ECG MONIT/REPRT UP TO 48 HRS (11/23/14) ECG MONIT/REPRT UP TO 48 HRS (11/23/14) EGD BIOPSY SINGLE/MULTIPLE (10/02/16) ELECTROCARDIOGRAM TRACING (09/02/18) EMERGENCY DEPT VISIT (09/02/18) EMERGENCY DEPT VISIT (01/08/18) EMERGENCY DEPT VISIT (08/17/14) EMERGENCY DEPT VISIT (01/15/14) HT MUSCLE IMAGE SPECT MULT (02/11/14) MEASURE BLOOD OXYGEN LEVEL (12/06/14) PROTHROMBIN TIME (09/02/18) RBC ANTIBODY SCREEN (03/19/19) ROUTINE VENIPUNCTURE (03/19/19) RPR S/N/AX/GEN/TRNK 2.5CM/< (08/17/14) THER/PROPH/DIAG IV INF INIT (01/08/18) THROMBOPLASTIN TIME PARTIAL (09/02/18) TISSUE EXAM BY PATHOLOGIST (10/02/16) TTE W/DOPPLER COMPLETE (10/16/16) US COMPL JOINT R-T W/IMG (10/16/16) X-RAY EXAM CHEST 1 VIEW (09/02/18) X-RAY EXAM CHEST 2 VIEWS (01/08/18) X-RAY EXAM OF SHOULDER (01/15/14) Problem List Initiated/Reviewed/Updated: Yes Plan: I was asked to speak with the patient and family regarding the results of a CT scan of abdomen, which shows evidence of cecal bascule with partial obstruction. There is gas and stool in the distal colon. Given that the patient has experienced clinical improvement since admission, and is tolerating a diet without abdominal pain or tenderness on exam, I recommended avoiding going to the OR since the patient appears frail and cachetic. I did not recommend colonoscopy given the high risk of recurrence as well as risk of perforation during endoscopy. If the patient develops severe abdominal pain and symptoms of large bowel obstruction, we can discuss surgery again as a treatment option, but for now I do not believe surgery is warranted.
--- NOTE | 2019-04-21 15:30 | PCM.DCSUM1 ---
Discharge Summary - Hospital Course HPI Initial Comments: History obtained from due to patient being so somnolent This is a 74-year-old male with past medical history of metastatic non small cell lung cancer who is brought to the ED by EMS for worsening somnolence and sliding out of chair. states patient has been having steadily decreasing appetite for approximately one month, to the point that now he barely eats 2-3 spoonfuls of food, mainly raisin bran. She states patient slid out of chair and she found him on the floor, unable to move hi or pick him up she decided to call EMS for further assistance and decided to bring him to the ED. Of note patient was recently on oral chemotherapy that was stopped about 1 week ago due to weakness. His long acting morphine dose was increased last week from 30 to 60mg QD. Diagnosis: Stroke: No - Discharge Data Discharge Date: 04/21/19 Discharge Disposition: Home, Self-Care Condition: Good - Referral to Home Health Date of Face to Face Encounter: 04/21/19 Reason for Homebound Status: Needs assistance of at least 1 to leave home and a front wheeled walker. Primary Care Physician: Jani Armstrong MD Skilled Need: Nursing: Indication: Pain management, disease management and education. Medication education, vital signs. Physical therapy: Indication: Functional mobility, standing balance, strength, transfers. [employer] services: Indication: Showering. - Patient Summary/Data Consults: Consultations 04/19/19 14:16 Consult to Case Management/Preschool Director [CONS] Routine OT Evaluation and Treatment [CONS] Routine PT Evaluation and Treatment [CONS] Routine Hospital Course: Sedation due to pain medication Worsening somnolence and altered mental status Patient is on chronic long acting PO morphine due to active neoplastic process Dose was increased around a week and a half ago to double previous dose--> likely cause of AMS PLAN - Decrease PO morphine to 15 TID - Bowel regimen Cecal volvulus Leukocytosis with toxic granulation and neutrophil predominance 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 Lynn consulted. - He is not recommending treatment at this time. Carlos is moving his bowels and has no pain. 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 Started on carboplatin+docetaxel+Keytruda due to ALK + from 02/26/18-05/15/18 2. Had 4 cycles and went on maintenance Keytruda until 08/2018 3. Large tumor in left chest wall that was a large irregular cavity--> radiation 4. 10/10/18- Started on Alectinib 5. 03/18/19-PET scan showed progression in right and left axillary lymph nodes as well as upper abdomen, retroperitoneal lymph nodes, right external iliac chain - Discussed gemcitabine + docetaxel or just gemcitabine due to weakened state , will likely tolerate better just gemcitabine due to poor performance status - Still progressing, stop Alectinib - Hemoglobin 6.6 - 03/19- Transfused 2u PRBCs - Plan to see him back to start chemotherapy on 04/06/19 6. 04/06/19- Very confused, sleeping a lot - Only taking hydrocodone 1-2 every 6 hours, pain not fully controlled - Hb 7.7, WBC 14.8 - CT head to r/o metastatic brain disease reported negative for any causes of AMS - CXR without pneumonia but persistent airspace opacities anterior left lung which represent pleural based asses seen on previous imaging studies - BP 84/47, afebrile - Bacterial and fungal blood cultured from port and periphery - 2u PRBC with Lasix - F/U back in 1 week 7. Blood cultures negative x 7 days for fungal or bacterial infection, Blood + x 1 for coagulase negative staph. deemed a contaminant Started on Megestrol 800 QD Discussed current status of patient with , she stated they were st up for an appointment tomorrow Asked patient directly and he stated he was actively fighting and seeking treatment for his cancer I am pending his decision on whether or not he wants to proceed with blood transfusion Treatment - morphine dose of 15 mg TID - Continue Megestrol - Continue PRN [place] 7.5 -Given 2 units PRBC -Follow up with Dr. Irvin. Acute on chronic respiratory failure with hypoxemia Patient on 2L NC at home Came in to the ED with SatO2 of 88%, baseline >92 PLAN - Continue NC - PRN DuoNebs and guaifenesin Hyponatremia Hypokalemia Likely 2/2 poor oral ingestion and volume depletion Treated with: - IVF and K supplementation Hypotension in the setting of previous hypertension diagnosis BP trend 89-102/48-61 - most recent 104/72 No on any meds at home except for atrial fibrillation meds No treatment necessary Atrial fibrillation on Eliquis Previous pulmonary embolus, 2012 Presence of IVC filter Rate trend 61-93x' Home management with Eliquis, diltiazem and metoprolol succinate PLAN - Continue home meds Hyperbilirubinemia rest of LFT's within normal limits Could be from decrease oral intake and hypovolemia Coronary artery disease Chronic ischemic heart disease Dyslipidemia No acute issues Home atorvastatin PROPHYLAXIS: DVT- Eliquis GI- not indicated CODE STATUS: FULL CODE - Patient Instructions Diet: Usual Diet as Tolerated Activity: As Tolerated Driving: Do Not Drive Showering/Bathing: July Shower - Discharge Plan *PRESCRIPTION DRUG MONITORING PROGRAM REVIEWED*: No *COPY OF PRESCRIPTION DRUG MONITORING REPORT IN PATIENT MAILE: No Home Medications: Home Meds Levothyroxine [Levothroid] 137 mcg PO DAILY 01/15/14 [History] Finasteride 5 mg PO DAILY 10/01/16 [History] Metoprolol Succinate [Toprol XL] 50 mg PO DAILY 10/01/16 [History] Tamsulosin [Flomax] 0.4 mg PO DAILY 10/01/16 [History] atorvaSTATin [Lipitor] 40 mg PO DAILY 10/01/16 [History] Apixaban [Eliquis] 5 mg PO BID 08/21/17 [History] Oxybutynin [Oxybutynin ER] 10 mg PO DAILY 08/21/17 [History] Benzonatate [Tessalon Perle] 100 mg PO BID 02/12/19 [History] Diltiazem HCl [Cartia Xt] 120 mg PO DAILY 02/12/19 [History] Multivitamin [Multi-Vitamin Daily] 1 tab PO DAILY 02/12/19 [History] Tiotropium Br/Olodaterol HCl [Stiolto Respimat Inhal [place]] 2 puff INH DAILY [History] Docusate Sodium/Sennosides [Senna Plus] 1 tab PO QID 04/19/19 [History] Megestrol [Megace 40 MG/ML Susp] 800 mg PO DAILY 04/20/19 [History] Morphine 15 mg PO TID 04/20/19 [History] Oxygen Therapy Mode: Nasal Cannula Patient Handouts: Home Oxygen Use, Adult, Pain Scale Information, Adult, Lung Cancer Forms: ED Department Discharge Referrals: Jani Armstrong MD [Primary Care Provider] - - Discharge Summary/Plan Comment DC Time >30 min.: Yes Discharge Summary/Plan Comment: Follow up with Dr. Irvin next week. - General Info Date of Service: 04/21/19 Admission Dx/Problem (Free Text: Worsening altered mental status Subjective Update: Patient is without any pain this morning. He does complain of some depression and we offered him consultation with psychiatry, but he declined. Functional Status: Reports: Pain Controlled - Review of Systems General: Reports: Fatigue HEENT: Reports: No Symptoms Pulmonary: Reports: No Symptoms Cardiovascular: Reports: No Symptoms Gastrointestinal: Reports: No Symptoms Musculoskeletal: Reports: No Symptoms Neurological: Reports: No Symptoms Psychiatric: Reports: Depression - Patient Data Vitals - Most Recent: Last Vital Signs Temp 97.8 F 04/21/19 14:56 Pulse 72 04/21/19 14:56 Resp 16 04/21/19 14:56 BP 104/72 04/21/19 14:56 Pulse Ox 98 04/21/19 14:56 Weight - Most Recent: 175 lb 11.2 oz I&O - Last 24 hours: Intake & Output 04/21/19 04/21/19 04/21/19 06:59 14:59 22:59 Intake Total 1415 360 120 Output Total 500 Balance 915 360 120 Lab Results - Last 24 hrs: Laboratory Results - last 24 hr 04/20/19 04/20/19 04/21/19 Range/Units 04:50 12:30 08:25 WBC 16.97 H (4.23-9.07) K/mm3 RBC 2.27 L (4.63-6.08) M/mm3 Hgb 7.2 L* (13.7-17.5) gm/dl Hct 24.3 L (40.1-51.0) % MCV 107.0 H (79.0-92.2) fl MCH 31.7 (25.7-32.2) pg MCHC 29.6 L (32.2-35.5) g/dl RDW Std Deviation 79.7 H (35.1-43.9) fL Plt Count 331 (163-337) K/mm3 MPV 8.2 L (9.4-12.3) fl Neut % (Auto) 83.5 H (34.0-67.9) % Lymph % (Auto) 6.1 L (21.8-53.1) % [place] % (Auto) 7.5 (5.3-12.2) % Eos % (Auto) 2.1 (0.8-7.0) Baso % (Auto) 0.2 (0.1-1.2) % Neut # (Auto) 14.17 H (1.78-5.38) K/mm3 Lymph # (Auto) 1.03 L (1.32-3.57) K/mm3 [place] # (Auto) 1.28 H (0.30-0.82) K/mm3 Eos # (Auto) 0.35 (0.04-0.54) K/mm3 Baso # (Auto) 0.03 (0.01-0.08) K/mm3 Manual Slide Review Abnormal smear Sodium (136-145) mEq/L Potassium (3.5-5.1) mEq/L Chloride (98-107) mEq/L Carbon Dioxide (21-32) mEq/L Anion Gap (5-15) BUN (7-18) mg/dL Creatinine (0.7-1.3) mg/dL Est Cr Clr Drug Dosing mL/min Estimated GFR (MDRD) (>60) mL/min BUN/Creatinine Ratio (14-18) Glucose (83-115) mg/dL Calcium (8.5-10.1) mg/dL Iron (65-175) ug/dL TIBC (100-400) ug/dL % Saturation (20-55) % Transferrin (202-364) mg/dL Prealbumin 4.4 L (17.0-34.0) mg/dL Blood Type A POSITIVE Gel Antibody Screen Negative Crossmatch See Detail 04/21/19 04/21/19 Range/Units 08:25 08:25 WBC (4.23-9.07) K/mm3 RBC (4.63-6.08) M/mm3 Hgb (13.7-17.5) gm/dl Hct (40.1-51.0) % MCV (79.0-92.2) fl MCH (25.7-32.2) pg MCHC (32.2-35.5) g/dl RDW Std Deviation (35.1-43.9) fL Plt Count (163-337) K/mm3 MPV (9.4-12.3) fl Neut % (Auto) (34.0-67.9) % Lymph % (Auto) (21.8-53.1) % [place] % (Auto) (5.3-12.2) % Eos % (Auto) (0.8-7.0) Baso % (Auto) (0.1-1.2) % Neut # (Auto) (1.78-5.38) K/mm3 Lymph # (Auto) (1.32-3.57) K/mm3 [place] # (Auto) (0.30-0.82) K/mm3 Eos # (Auto) (0.04-0.54) K/mm3 Baso # (Auto) (0.01-0.08) K/mm3 Manual Slide Review Sodium 137 (136-145) mEq/L Potassium 3.5 (3.5-5.1) mEq/L Chloride 102 (98-107) mEq/L Carbon Dioxide 26 (21-32) mEq/L Anion Gap 12.5 (5-15) BUN 12 (7-18) mg/dL Creatinine 0.9 (0.7-1.3) mg/dL Est Cr Clr Drug Dosing 72.28 mL/min Estimated GFR (MDRD) > 60 (>60) mL/min BUN/Creatinine Ratio 13.3 L (14-18) Glucose 98 (83-115) mg/dL Calcium 9.2 (8.5-10.1) mg/dL Iron 44 L (65-175) ug/dL TIBC 120 (100-400) ug/dL % Saturation 37 (20-55) % Transferrin 96 L (202-364) mg/dL Prealbumin (17.0-34.0) mg/dL Blood Type Gel Antibody Screen Crossmatch TABBY Results - Last 24 hrs: Microbiology 04/20/19 19:33 Stool Occult Blood (TABBY) - Final Stool / Feces Med Orders - Current: Current Medications Apixaban (Eliquis) 5 mg PO BID [facility] Last Admin: 04/21/19 09:45 Dose: 5 mg Benzonatate (Tessalon Perles) 100 mg PO BID [facility] Last Admin: 04/21/19 09:45 Dose: 100 mg Diltiazem HCl (Cardizem Cd) 120 mg PO DAILY [facility] Last Admin: 04/21/19 09:41 Dose: 120 mg Finasteride (Proscar) 5 mg PO DAILY [facility] Last Admin: 04/21/19 09:43 Dose: 5 mg Furosemide (Lasix) 20 mg IVPUSH NOW [facility] Stop: 04/21/19 16:00 Sodium Chloride (Normal Saline) 250 mls @ 100 mls/hr IV ASDIRECTED [facility] Last Admin: 04/21/19 14:08 Dose: 100 mls/hr Megestrol Acetate (Megace 40 Mg/Ml Susp) 800 mg PO DAILY [facility] Last Admin: 04/21/19 09:45 Dose: 800 mg Metoprolol Succinate (Toprol Xl) 50 mg PO DAILY [facility] Last Admin: 04/21/19 09:43 Dose: 50 mg Morphine Sulfate (Morphine) 15 mg PO TID [facility] Last Admin: 04/21/19 14:07 Dose: 15 mg Ondansetron HCl (Zofran) 4 mg IV Q6H PRN PRN Reason: Nausea/Vomiting Oxybutynin Chloride (Oxybutynin Er) 10 mg PO DAILY [facility] Last Admin: 04/21/19 09:45 Dose: 10 mg Tiotropium Br/Olodaterol Hcl [ Stiolto Respimat Inhal [place]] 0 each INH DAILY [facility] Last Admin: 04/21/19 09:47 Dose: Not Given Senna/Docusate Sodium (Senna Plus) 1 tab PO QID [facility] Last Admin: 04/21/19 14:08 Dose: 1 tab Sodium Chloride (Saline Flush) 10 ml FLUSH ASDIRECTED PRN PRN Reason: Keep Vein Open Last Admin: 04/19/19 04:39 Dose: 10 ml Tamsulosin HCl (Flomax) 0.4 mg PO DAILY [facility] Last Admin: 04/21/19 09:43 Dose: 0.4 mg Discontinued Medications Diatrizoate Meglum/Diatrizoate Sod (Gastrografin 37%) 120 ml PO ONETIME ONE Stop: 04/20/19 11:58 Last Admin: 04/20/19 13:28 Dose: 90 ml Sodium Chloride (Normal Saline) 1,000 mls @ 999 mls/hr IV ONETIME [facility] Last Admin: 04/19/19 04:39 Dose: 999 mls/hr Lactated Ringer's (Ringers, Lactated) 1,000 mls @ 100 mls/hr IV ASDIRECTED [facility] Last Admin: 04/21/19 02:12 Dose: 100 mls/hr Iopamidol (Isovue-300 (61%)) 100 ml IVPUSH ONETIME ONE Stop: 04/20/19 11:58 Last Admin: 04/20/19 13:28 Dose: 100 ml Ketorolac Tromethamine (Toradol) 30 mg IV Q6H PRN PRN Reason: Pain (moderate 4-6) Last Admin: 04/20/19 04:34 Dose: 30 mg Morphine Sulfate (Morphine) 2 mg IVPUSH Q2H PRN PRN Reason: Pain (severe 7-10) Stop: 04/20/19 14:21 Morphine Sulfate (Ms Contin) 15 mg PO BID [facility] Last Admin: 04/20/19 23:59 Dose: Not Given Sodium Chloride (Saline Flush) 10 ml FLUSH ONETIME PRN PRN Reason: IV FLUSH Stop: 04/20/19 14:00 Last Admin: 04/20/19 13:29 Dose: 10 ml - Exam Quality Assessment: Reports: Supplemental Oxygen General: Reports: Alert, Oriented HEENT: Reports: Pupils Equal, Mucous Membr. Moist/[place] Neck: Reports: Supple Lungs: Reports: Normal Respiratory Effort, Crackles Cardiovascular: Reports: Regular Rate, Regular Rhythm GI/Abdominal Exam: Normal Bowel Sounds, Soft, Non-Tender, No Organomegaly, No Distention, No Abnormal Bruit, No Mass, Pelvis Stable Back Exam: Reports: Normal Inspection Extremities: Normal Inspection, Non-Tender, No Pedal Edema Psy/Mental Status: Reports: Alert, Normal Affect, Normal Mood
[2019-04-21 20:33] VITALS: BP 102/62; PULSE 65
== END 2019-04-21 21:10 | disposition home or self-care (01) | DRG 884 ==
LOC: JD.ED 03:29 → JD.MS 14:16
PROVIDERS: ADMIT Internal Medicine; ATTEND Internal Medicine
DX: R53.1 Weakness (principal); R62.7 Adult failure to thrive; R40.4 Transient alteration of awareness; K56.2 Volvulus; C79.9 Secondary malignant neoplasm of unspecified site; Z66 Do not resuscitate; Z51.5 Encounter for palliative care; H54.7 Unspecified visual loss; I25.10 Atherosclerotic heart disease of native coronary artery without angina pectoris; I10 Essential (primary) hypertension; E78.00 Pure hypercholesterolemia, unspecified; I25.2 Old myocardial infarction; Z95.5 Presence of coronary angioplasty implant and graft; J43.9 Emphysema, unspecified; Z86.711 Personal history of pulmonary embolism; G47.30 Sleep apnea, unspecified; K21.9 Gastro-esophageal reflux disease without esophagitis; E03.9 Hypothyroidism, unspecified; E66.9 Obesity, unspecified; Z91.018 Allergy to other foods; J96.21 Acute and chronic respiratory failure with hypoxia; C34.90 Malignant neoplasm of unspecified part of unspecified bronchus or lung; E87.1 Hypo-osmolality and hyponatremia; R64 Cachexia; T40.2X5A Adverse effect of other opioids, initial encounter; D50.9 Iron deficiency anemia, unspecified; E88.09 Other disorders of plasma-protein metabolism, not elsewhere classified; I48.91 Unspecified atrial fibrillation; E80.6 Other disorders of bilirubin metabolism; Z79.01 Long term (current) use of anticoagulants; Z79.890 Hormone replacement therapy; Z79.899 Other long term (current) drug therapy; Z91.013 Allergy to seafood
CPT/HCPCS: 36415; 70450; 71045; 71101; 72125; 72170; 74019; 80053; 83605; 85025; 93005; J7030; 36430; 74177; 74177-26; 80048; 82272; 82306; 82607; 82728; 82746; 83540; 83735; 84100; 84134; 84466; 85027; 85045; 86850; 86900; 86901; 86922; 93010; 94760; 97110-GP; 97116-GP; 97162-GP; 97165-GO; 97535-GO; 99284; A9270-GY; J1642; J1885; J7050; J7120; P9016; Q9967